=== PATIENT | male | born 1985 ===

== ENCOUNTER 2017-02-12 11:46 | Emergency (ER) | payer OTHER ==
[2017-02-12 11:58] VITALS: RESP 17; TEMP 98
--- NOTE | 2017-02-12 12:30 | ED PDOC ---
Arrival/HPI - General Historian: Patient - History of Present Illness Time/Duration: < week Symptom Onset: Sudden Symptom Course: Intermittent Quality: Stabbing <Iain Tabor - Last Filed: 02/12/17 13:35> <Db Covarrubias DO - Last Filed: 02/12/17 22:08> - General Chief Complaint: Chest Pain Time Seen by Provider: 02/12/17 11:50 - History of Present Illness Narrative History of Present Illness (Text): 02/12/17 12:16 This is a 31 year old male with PMHx A-fib s/p ablation who comes in for evaluation of chest pain. The pain actually begins on the top of his head and radiates down the neck to the center of the sternum. From there, it also radiates straight through to the back. Pain is intermittent and described as a sharp, stabbing sensation. Patient has been experiencing this for 3 days but this morning has started experiencing palpitations prompting him to seek medical attention. Patient also feels lightheaded at times. Patient denies changes in vision, dyspnea, and other acute complaints. PMHx: A-fib diagnosed September 2015 PSHx: Ablation May 2016 at [facility] Allergies: NKDA Social: Former smoker smoking 1 or 2 cigarettes daily for 2 years. Quit in 2016. Denies alcohol, drug use. Family Hx: HTN and CAD on father's side of family. DM on mother's side. Medications: Formerly on Atenolol but stopped 3 months ago by his boiling house hand who stated he did not need it anymore. PMD: Dr. Luong in [place] Cardiologists: Dr. Perez and Dr. Keller in [place] (Iain Tabor) Past Medical History - Provider Review Nursing Documentation Reviewed: Yes - Infectious Disease Hx of Infectious Diseases: None - Cardiac Hx Atrial Fibrillation: Yes - Psychiatric Hx Substance Use: No - Anesthesia Hx Anesthesia: No <Iain Tabor - Last Filed: 02/12/17 13:35> Family/Social History - Physician Review Nursing Documentation Reviewed: Yes Family/Social History: Diabetes, Hypertension Smoking Status: Former Smoker Hx Alcohol Use: No Hx Substance Use: No <Iain Tabor - Last Filed: 02/12/17 13:35> Allergies/Home Meds <Iain Tabor - Last Filed: 02/12/17 13:35> <Db Covarrubias DO - Last Filed: 02/12/17 22:08> Allergies/Adverse Reactions: Allergies No Known Allergies Allergy (Verified 02/12/17 12:07) Home Medications: Home Meds Medication Instructions Recorded Confirmed No Known Home Med 02/12/17 02/12/17 Review of Systems - Review of Systems Constitutional: Normal Eyes: Normal ENT: Normal Respiratory: Normal. absent: SOB Cardiovascular: Chest Pain, Palpitations Gastrointestinal: Abdominal Pain (intermittent when eating or drinking). absent : Constipation, Diarrhea, Nausea, Vomiting Genitourinary Male: Normal Musculoskeletal: Neck Pain Skin: Normal Neurological: Normal, Other (lightheaded) Endocrine: Normal Hemo/Lymphatic: Normal Psychiatric: Normal <LeanderIani Hayde - Last Filed: 02/12/17 13:35> Physical Exam Vital Signs Reviewed: Yes Temperature: Afebrile Blood Pressure: Normal Pulse: Regular Respiratory Rate: Normal Appearance: Positive for: Well-Appearing, Comfortable Pain Distress: None Mental Status: Positive for: Alert and Oriented X 3 - Systems Exam Head: Present: Atraumatic, Normocephalic Pupils: Present: PERRL Extroacular Muscles: Present: EOMI Conjunctiva: Present: Normal Mouth: Present: Moist Mucous Membranes Neck: Present: Normal Range of Motion Respiratory/Chest: Present: Clear to Auscultation, Good Air Exchange. No: Accessory Muscle Use Cardiovascular: Present: Regular Rate and Rhythm, Normal S1, S2 Abdomen: Present: Tenderness (right upper quadrant), Normal Bowel Sounds. No: Distention Upper Extremity: Present: Normal Inspection, NORMAL PULSES. No: Edema Lower Extremity: Present: Normal Inspection, NORMAL PULSES. No: Edema, CALF TENDERNESS Neurological: Present: GCS=15, CN II-XII Intact Skin: Present: Warm, Dry, Normal Color. No: Rashes Psychiatric: Present: Alert, Oriented x 3 <LeanderIain Lock - Last Filed: 02/12/17 13:35> Medical Decision Making <LeanderIain Lock - Last Filed: 02/12/17 13:35> <Db Covarrubias DO - Last Filed: 02/12/17 22:08> ED Course and Treatment: 02/12/17 12:38 EKG, Portable CXR, Cardiac ISO, TSH, T3, T4, Mag EKG showed NSR with rate 84, Right Locust Deviation, and Q waves noted in V1, V2 Portable CXR showed no acute infiltrates, apparent pneumothorax, or other acute pathology. Labwork unremarkable. Patient discharged with instructions to follow up with his PMD Dr. Luong whose phone number was provided. (Iain Tabor) 02/12/17 13:33 Patient Seen With Resident: In agreement with resident note and more details are present in their notes. Patient was seen and evaluated with resident, came up with plan and treatment together. (Db Covarrubias DO) - Lab Interpretations Lab Results: 02/12/17 12:00 02/12/17 12:00 Lab Results 02/12/17 12:00: Free T4 0.67 L, Total T3 1.18, TSH 3rd Generation 1.67 02/12/17 12:00: Sodium 140, Potassium 4.1, Chloride 103, Carbon Dioxide 29, Anion Gap 12, BUN 13, Creatinine 0.9, Est GFR ( Amer) > 60, Est GFR (Non- Af Amer) > 60, Random Glucose 86, Calcium 9.3, Magnesium 2.0, Total Bilirubin 0.8, AST 22, ALT 43, Alkaline Phosphatase 53, Lactate Dehydrogenase 432, Total Creatine Kinase 146, Troponin I < 0.01, Total Protein 7.6, Albumin 4.5, Globulin 3.1, Albumin/Globulin Ratio 1.5 02/12/17 12:00: WBC 4.1 L, RBC 5.47, Hgb 16.7, Hct 45.7, MCV 83.5, MCH 30.5, MCHC 36.5, RDW 11.8, Plt Count 197, MPV 9.8, Gran % 52.0, Lymph % (Auto) 39.4 H , [place] % (Auto) 7.1 H, Eos % (Auto) 1.0 L, Baso % (Auto) 0.5, Gran # 2.13, Lymph # 1.6, [place] # 0.3, Eos # 0.0, Baso # 0.02 - RAD Interpretation Radiology Orders: 02/12/17 12:11 CHEST PORTABLE [RAD] Stat - PA / HANDY WORKER / Resident Statement YARI has reviewed & agrees with the documentation as recorded. <Iain Tabor - Last Filed: 02/12/17 13:35> - PA / HANDY WORKER / Resident Statement YARI has reviewed & agrees with the documentation as recorded. / has examined the patient and agrees with the treatment plan. <Db Covarrubias DO - Last Filed: 02/12/17 22:08> Disposition/Present on Arrival - Present on Arrival Any Indicators Present on Arrival: No History of DVT/PE: No History of Uncontrolled Diabetes: No Urinary Catheter: No History of Decub. Ulcer: No History Surgical Site Infection Following: None - Disposition Have Diagnosis and Disposition been Completed?: Yes Disposition Time: 13:00 Patient Plan: Discharge <Iain Tabor - Last Filed: 02/12/17 13:35> <Db Covarrubias DO - Last Filed: 02/12/17 22:08> - Disposition Diagnosis: Chest pain Disposition: HOME/ ROUTINE Condition: STABLE Discharge Instructions (ExitCare): Chest Pain (ED) Additional Instructions: Your EKG and labwork came back normal. You are not actively in Atrial Fibrillation. Please follow up with Dr. Luong your primary care doctor within 1 week of discharge. His phone number is . Please follow up with your boiling house hand for your history of atrial fibrillation. Please follow up with your neurologist for the headaches. If you experience any worsening symptoms, please return to the emergency room. Forms: [employer] (Korean)
[2017-02-12 12:42] LABS: ALB/GLOB RATIO 1.5 (1.1-1.8); ALKALINE PHOSPHATASE 53 U/L (38-126); ALT/SGPT 43 U/L (7-56); AST/SGOT 22 U/L (17-59); BILIRUBIN,TOTAL 0.8 mg/dL (0.2-1.3); BLOOD UREA NITROGEN 13 mg/dL (7-21); CALCIUM 9.3 mg/dL (8.4-10.5); CARBON DIOXIDE 29 mmol/L (21-33); CHLORIDE 103 mmol/L (98-107); GFR AFRICAN-AMERICAN > 60; GLUCOSE,RANDOM 86 mg/dL (70-110); POTASSIUM 4.1 mmol/L (3.6-5.0); SODIUM 140 mmol/L (132-148); TOTAL PROTEIN 7.6 g/dL (5.8-8.3)
[2017-02-12 12:47] LABS: BASO # 0.02 K/mm3 (0.0-2.0); BASO % 0.5 % (0.0-3.0); GRAN # 2.13 (1.4-6.5); HEMATOCRIT 45.7 % (42.0-52.0); LYMPH # 1.6 (1.2-3.4); LYMPH % 39.4 % (22.0-35.0); MEAN CELL VOLUME 83.5 fl (80.0-105.0); MEAN CORPUSCULAR HEMOGLOBIN 30.5 pg (25.0-35.0); MEAN CORPUSCULAR HGB CONC 36.5 g/dl (31.0-37.0); MEAN PLATELET VOLUME 9.8 fl (7.0-11.0); MONO # 0.3 (0.1-0.6); MONO % 7.1 % (1.0-6.0); RED CELL DISTRIBUTION WIDTH 11.8 % (11.5-14.5); WHITE BLOOD COUNT 4.1 10^3/ul (4.5-11.0)
--- NOTE | 2017-02-12 12:52 | RAD ---
HISTORY: chest pain COMPARISON: None available. TECHNIQUE: Chest, one view. FINDINGS: LUNGS: No focal consolidation. Please note that chest x-ray has limited sensitivity for the detection of pulmonary masses. PLEURA: No significant pleural effusion identified. No definite pneumothorax . CARDIOVASCULAR: The cardiomediastinal silhouette appears within normal limits of size. OSSEOUS STRUCTURES: No acute osseous abnormality identified. VISUALIZED UPPER ABDOMEN: Unremarkable. OTHER FINDINGS: None. IMPRESSION: No focal consolidation, significant pleural effusion, or definite pneumothorax identified.
[2017-02-12 12:58] LABS: TROPONIN I < 0.01 ng/mL
[2017-02-12 12:59] LABS: FREE T4 0.67 ng/dL (0.78-2.19)
[2017-02-12 13:13] LABS: T3 1.18 ng/mL (0.97-1.69); THYROID STIMULATING HORMONE 1.67 mIU/mL (0.46-4.68)
[2017-02-12 13:35] VITALS: BP 119/62; PULSE 79; O2SAT 100
--- NOTE | 2017-02-13 07:30 | CARD ---
APPROVED REPORT EKG Measurement Heart [id number] <Conclusion> Normal sinus rhythm Right superior axis deviation Cannot rule out Anterior infarct, age undetermined Abnormal ECG
== END 2017-02-12 13:35 | disposition home or self-care (01) ==
LOC: ED 11:46
DX: R07.9 Chest pain, unspecified (principal)

== ENCOUNTER 2017-02-28 11:53 | Emergency (ER) | payer OTHER ==
[2017-02-28 12:11] VITALS: RESP 16; TEMP 98.1
--- NOTE | 2017-02-28 12:32 | ED PDOC ---
Arrival/HPI - General Chief Complaint: Palpitations Time Seen by Provider: 02/28/17 12:28 Historian: Patient - History of Present Illness Narrative History of Present Illness (Text): 02/28/17 12:32 This is a 31 year old male with PMHx A-fib s/p ablation who comes in for evaluation of episode of palpitation developed appr. 2 hours [employer]IE[employer] without syncope. As per pt, was having breakfast when suddenly felt fast hear beats, (+ ) dizziness. Episode last approximately 1 hours and resolved with time. AT present time, pt reports ' feel weak with diffuse anterior chest wall pain". Pt admits, was seen here in ED on 02/12/17 due to same complaints, when blood work performed, normal results, patient was discharged with outpt f/u card. Pt admits , was seen by his Qc Manager Dr.Sahar Spearfish, [facility], received heart monitor that he was wearing for last week and removed 2 days ago, so last episode was not registered. Pt sts, was placed on Atenolol before, removed by card few months ago " noted like my palpitation became more frequent". Pt also reports, noted episodes of palpitation triggered by food " recently developed during food intake". Otherwise, pt denies syncope, severe headache, visual changes, focal deficits, SOB, diaphoresis, abd. pain, N/V/D, incontinence, denies weakness, sensory or vascular deficits to B/L UEs and LEs. At the time of evaluation, appears comfortable, not in any apparent distress. PMHx: A-fib diagnosed September 2015 PSHx: Ablation May 2016 at [facility] Allergies: NKDA Social: Former smoker smoking 1 or 2 cigarettes daily for 2 years. Quit in 2016. Denies alcohol, drug use. Family Hx: HTN and CAD on father's side of family. DM on mother's side. Medications: Formerly on Atenolol but stopped 3 months ago by his metals analyst who stated he did not need it anymore. PMD: Dr. Luong in [place] Cardiologists: Dr. Perez and Dr. Keller in [facility] Past Medical History - Provider Review Nursing Documentation Reviewed: Yes - Travel History Have you recently traveled outside [place] w/in the past 3 mons?: No - Infectious Disease Hx of Infectious Diseases: None - Tetanus Immunization Tetanus Immunization: Unknown - Cardiac Hx Cardiac Disorders: Yes Hx Atrial Fibrillation: Yes - Pulmonary Hx Respiratory Disorders: No - Neurological Hx Neurological Disorder: No - HEENT Hx HEENT Disorder: No - Renal Hx Renal Disorder: No - Endocrine/Metabolic Hx Endocrine Disorders: No - Hematological/Oncological Hx Blood Disorders: No - Integumentary Hx Dermatological Disorder: No - Musculoskeletal/Rheumatological Hx Musculoskeletal Disorders: No - Gastrointestinal Hx Gastrointestinal Disorders: No - Genitourinary/Gynecological Hx Genitourinary Disorders: No - Psychiatric Hx Psychophysiologic Disorder: No Hx Substance Use: No - Anesthesia Hx Anesthesia: No Family/Social History - Physician Review Nursing Documentation Reviewed: Yes Family/Social History: No Known Family HX Smoking Status: Former Smoker Hx Alcohol Use: No Hx Substance Use: No Allergies/Home Meds Allergies/Adverse Reactions: Allergies No Known Allergies Allergy (Verified 02/28/17 12:02) Home Medications: Home Meds Medication Instructions Recorded Confirmed No Known Home Med 02/12/17 02/28/17 Review of Systems - Review of Systems Constitutional: Normal Eyes: Normal ENT: Normal Respiratory: Normal Cardiovascular: Palpitations Gastrointestinal: Normal Genitourinary Male: Normal Musculoskeletal: Normal Skin: Normal Neurological: Normal Endocrine: Normal Hemo/Lymphatic: Normal Psychiatric: Normal Physical Exam Vital Signs Temp Pulse Resp BP Pulse Ox 02/28/17 14:49 71 16 119/79 99 02/28/17 12:11 98.1 F 98 H 16 137/76 100 Temperature: Afebrile Blood Pressure: Normal Pulse: Regular Respiratory Rate: Normal Appearance: Positive for: Well-Appearing, Non-Toxic, Comfortable Pain Distress: None Mental Status: Positive for: Alert and Oriented X 3 - Systems Exam Head: Present: Atraumatic, Normocephalic Pupils: Present: PERRL Extroacular Muscles: Present: EOMI Conjunctiva: Present: Normal Mouth: Present: Moist Mucous Membranes Neck: Present: Trachea Midline. No: JVD, Bruit Respiratory/Chest: Present: Clear to Auscultation, Good Air Exchange. No: Respiratory Distress, Accessory Muscle Use Cardiovascular: Present: Regular Rate and Rhythm, Normal S1, S2. No: Murmurs Abdomen: Present: Normal Bowel Sounds. No: Tenderness, Distention, Peritoneal Signs Back: Present: Normal Inspection Upper Extremity: Present: Normal ROM. No: Cyanosis, Edema, Deformity Lower Extremity: Present: NORMAL PULSES, Normal ROM. No: Edema, CALF TENDERNESS , Deformity Neurological: Present: GCS=15, Speech Normal Skin: Present: Warm, Dry, Normal Color. No: Rashes Psychiatric: Present: Alert, Oriented x 3, Normal Insight Medical Decision Making ED Course and Treatment: 02/28/17 At 12:56, case discussed with pt's metals analyst [phone] and case discussed. As per , since episode of palpitation was without syncope, discharge with outpt f/u with him tomorrow at 2:30 PM recommend at this time. Pt was OBS in ED for 2 hours and remained stable on card. monitor, no episode of palpitation register. Case discussed and diagnostics, imaging review with ED attending, Pt was evaluated by . Discharge with outpt f/u agrees as per discussion with pt's metals analyst . Pt is afebrile, hemodynamicaly stable. Non-toxic. PUlseOx 99% RA Neck: Supple, (-) JVD, (-) carotid bruits Lungs: CTA B/L, BS equal B/L CVS: (+)S1S2, reg. Abd: benign. Neurologicaly intact. Results review and discussed with pt, no acute abnormalities noted compare to previous visit. Pt advised to F/u with his card. as scheduled for tomorrow, agrees with plan. Pt is stable for discharge now. - Lab Interpretations Lab Results: 02/28/17 13:35 02/28/17 13:35 Lab Results 02/28/17 13:35: Sodium 143, Potassium 4.3, Chloride 101, Carbon Dioxide 32, Anion Gap 14, BUN 14, Creatinine 0.9, Est GFR ( Amer) > 60, Est GFR (Non- Af Amer) > 60, Random Glucose 73, Calcium 9.7, Magnesium 2.1, Total Bilirubin 0.8, AST 25, ALT 45, Alkaline Phosphatase 56, Lactate Dehydrogenase 444, Total Creatine Kinase 138, Troponin I < 0.01, Total Protein 8.1, Albumin 4.8, Globulin 3.3, Albumin/Globulin Ratio 1.5 02/28/17 13:35: Urine Color Yellow, Urine Appearance Clear, Urine pH 7.5, Ur Specific [place] 1.015, Urine Protein Negative, Urine Glucose (UA) Negative, Urine Ketones Negative, Urine Blood Negative, Urine Nitrate Negative, Urine Bilirubin Negative, Urine Urobilinogen 0.2, Ur Leukocyte Esterase Negative 02/28/17 13:35: PT 11.1, INR 1.03, APTT 26.8, D-Dimer, Quantitative 0.19 02/28/17 13:35: WBC 5.4 D, RBC 5.50, Hgb 17.0, Hct 46.0, MCV 83.6, MCH 30.9, MCHC 37.0, RDW 11.9, Plt Count 200, MPV 9.6, Gran % 65.9, Lymph % (Auto) 24.9, [place] % (Auto) 8.1 H, Eos % (Auto) 0.7 L, Baso % (Auto) 0.4, Gran # 3.57, Lymph # 1.4, [place] # 0.4, Eos # 0.0, Baso # 0.02 Interpretation: No clinic. lab abnormalty - EKG Interpretation EKG Interpretation (Text): 02/28/17 12:03 SR@96/MIN, RAD, NO ACUTE ST-T CHANGES. COMPARE TO ONE FROM PREVIOUS VISIT- APPEARS SIMILAR. Interpreted by ED Physician: Yes Comparison: Similar to previous EKG - Medication Orders Current Medication Orders: Discontinued Medications Sodium Chloride (Sodium Chloride 0.9%) 1,000 mls @ 250 mls/hr IV .Q4H STA Stop: 02/28/17 16:57 Last Admin: 02/28/17 13:31 Dose: 250 mls/hr eMAR Start Stop Document 02/28/17 13:31 HI (Rec: 02/28/17 13:31 VA [id number]) Intravenous Solution Start Date 02/28/17 Start Time 13:31 Disposition/Present on Arrival - Present on Arrival Any Indicators Present on Arrival: No History of DVT/PE: No History of Uncontrolled Diabetes: No Urinary Catheter: No History of Decub. Ulcer: No History Surgical Site Infection Following: None - Disposition Have Diagnosis and Disposition been Completed?: Yes Diagnosis: Palpitation Disposition: HOME/ ROUTINE Disposition Time: 14:23 Patient Plan: Discharge Condition: STABLE Discharge Instructions (ExitCare): Palpitations (ED) Additional Instructions: FOLLOW UP WITH TERRENCE OSBORNE, [facility] TOMORROW 03/01/17 AT 2:30PM FOR RE- EVALUATION WITHOUT FAIL. RETURN TO ED IF ANY WORSENING OR NEW CHANGES. Referrals: [employer] [facility], [Primary Care Provider] - Follow up with primary Forms: [employer] (Irish)
[2017-02-28] MEDS ORDERED: Sodium Chloride 0.9% 1,000 ML IV STA (12:58)
[2017-02-28 13:46] LABS: BASO # 0.02 K/mm3 (0.0-2.0); BASO % 0.4 % (0.0-3.0); EOS % 0.7 % (1.5-5.0); GRAN # 3.57 (1.4-6.5); GRAN % 65.9 % (50.0-68.0); LYMPH # 1.4 (1.2-3.4); LYMPH % 24.9 % (22.0-35.0); MEAN CELL VOLUME 83.6 fl (80.0-105.0); MEAN CORPUSCULAR HEMOGLOBIN 30.9 pg (25.0-35.0); MEAN PLATELET VOLUME 9.6 fl (7.0-11.0); MONO # 0.4 (0.1-0.6); MONO % 8.1 % (1.0-6.0); RED CELL DISTRIBUTION WIDTH 11.9 % (11.5-14.5); WHITE BLOOD COUNT 5.4 10^3/ul (4.5-11.0)
[2017-02-28 13:51] LABS: INR 1.03 (0.93-1.08); PARTIAL THROMBOPLASTIN TIME 26.8 Seconds (23.7-30.8)
[2017-02-28 13:54] LABS: PH,URINE 7.5 (4.7-8.0); URINE BILIRUBIN NEGATIVE (NEGATIVE); URINE BLOOD NEGATIVE (NEGATIVE); URINE GLUCOSE (UA) NEGATIVE (NEGATIVE); URINE KETONE NEGATIVE (NEGATIVE); URINE LEUKOCYTE ESTERASE NEGATIVE Leu/uL (NEGATIVE); URINE PROTEIN NEGATIVE mg/dL (<30 mg/dL); URINE UROBILINOGEN 0.2 E.U./dL (<1 E.U./dL)
[2017-02-28 13:56] LABS: ALB/GLOB RATIO 1.5 (1.1-1.8); ALKALINE PHOSPHATASE 56 U/L (38-126); ALT/SGPT 45 U/L (7-56); AST/SGOT 25 U/L (17-59); BILIRUBIN,TOTAL 0.8 mg/dL (0.2-1.3); BLOOD UREA NITROGEN 14 mg/dL (7-21); CALCIUM 9.7 mg/dL (8.4-10.5); CARBON DIOXIDE 32 mmol/L (21-33); CHLORIDE 101 mmol/L (98-107); GFR AFRICAN-AMERICAN > 60; GLUCOSE,RANDOM 73 mg/dL (70-110); MAGNESIUM 2.1 mg/dL (1.7-2.2); POTASSIUM 4.3 mmol/L (3.6-5.0); SODIUM 143 mmol/L (132-148); TOTAL PROTEIN 8.1 g/dL (5.8-8.3)
[2017-02-28 14:04] LABS: URINE APPEARANCE CLEAR (CLEAR); URINE COLOR YELLOW (YELLOW)
[2017-02-28 14:07] LABS: TROPONIN I < 0.01 ng/mL
[2017-02-28 14:19] LABS: D DIMER 0.19 mg/L FEU (0-0.50)
[2017-02-28 14:51] VITALS: BP 119/79; PULSE 71; O2SAT 99
--- NOTE | 2017-02-28 22:44 | CARD ---
APPROVED REPORT EKG Measurement Heart [id number] 156P55 [id number] <Conclusion> Normal sinus rhythm Right axis deviation Abnormal ECG
== END 2017-02-28 14:51 | disposition home or self-care (01) ==
LOC: ED 11:53
DX: R00.2 Palpitations (principal); Z87.891 Personal history of nicotine dependence; I10 Essential (primary) hypertension; E11.9 Type 2 diabetes mellitus without complications; I25.10 Atherosclerotic heart disease of native coronary artery without angina pectoris; I48.91 Unspecified atrial fibrillation
CPT/HCPCS: 80053; 81003; 82550; 83615; 83735; 84484; 85025; 85378; 85610; 85730; 93005; 99284; J7040

== ENCOUNTER 2017-06-06 10:03 | Emergency (ER) | payer OTHER ==
[2017-06-06 10:15] VITALS: BMI 31.4
[2017-06-06 10:16] VITALS: BP 126/63; PULSE 89; RESP 18; TEMP 99.4; O2SAT 96
[2017-06-06] MEDS ORDERED: Amoxicillin-Clav 875-125 mg Tab PO STA (10:35)
--- NOTE | 2017-06-06 10:38 | ED PDOC ---
Arrival/HPI - General Chief Complaint: Eye Problem Time Seen by Provider: 06/06/17 10:34 Historian: Patient - History of Present Illness Narrative History of Present Illness (Text): 06/06/17 10:35 32 y/o male, no pmh, nkda, c/o rt. upper eyelid swelling and redness. Pt. stated that he had a little lump on the rt. upper eyelid which been having pain , been rubbing the upper eyelid, noted to have redness, no change in vision, no painful movement of the eye, no dizziness, no painful movement of the eye, no headache or neck pain, no other medical or psychological complaints. Past Medical History - Provider Review Nursing Documentation Reviewed: Yes - Infectious Disease Hx of Infectious Diseases: None - Tetanus Immunization Tetanus Immunization: Unknown - Cardiac Hx Cardiac Disorders: Yes Hx Atrial Fibrillation: Yes - Pulmonary Hx Respiratory Disorders: No - Neurological Hx Neurological Disorder: No - HEENT Hx HEENT Disorder: No - Renal Hx Renal Disorder: No - Endocrine/Metabolic Hx Endocrine Disorders: No - Hematological/Oncological Hx Blood Disorders: No - Integumentary Hx Dermatological Disorder: No - Musculoskeletal/Rheumatological Hx Musculoskeletal Disorders: No - Gastrointestinal Hx Gastrointestinal Disorders: No - Genitourinary/Gynecological Hx Genitourinary Disorders: No - Psychiatric Hx Psychophysiologic Disorder: No Hx Substance Use: No - Anesthesia Hx Anesthesia: No Family/Social History - Physician Review Nursing Documentation Reviewed: Yes Family/Social History: Unknown Family HX Smoking Status: Former Smoker Hx Alcohol Use: No Hx Substance Use: No Allergies/Home Meds Allergies/Adverse Reactions: Allergies No Known Allergies Allergy (Verified 02/28/17 12:02) Home Medications: Home Meds Medication Instructions Recorded Confirmed Atenolol [Tenormin] 25 mg PO DAILY 06/06/17 06/06/17 Review of Systems - Review of Systems Constitutional: absent: Fatigue, Fevers Eyes: Other (rt. upper eyelid swelling). absent: Vision Changes ENT: absent: Hearing Changes Respiratory: absent: SOB, Cough Cardiovascular: absent: Chest Pain Gastrointestinal: absent: Abdominal Pain, Nausea, Vomiting Skin: Rash, Cellulitis. absent: Pruritis, Skin Lesions, Ulcer Neurological: absent: Headache, Dizziness Psychiatric: absent: Anxiety, Depression Physical Exam Vital Signs Reviewed: Yes Vital Signs Temp Pulse Resp BP Pulse Ox 06/06/17 10:03 99.4 F 89 18 126/63 96 Temperature: Afebrile Blood Pressure: Normal Pulse: Regular Respiratory Rate: Normal Appearance: Positive for: Well-Appearing, Non-Toxic, Comfortable Pain Distress: None Mental Status: Positive for: Alert and Oriented X 3 - Systems Exam Head: Present: Atraumatic, Normocephalic Pupils: Present: PERRL, Other (Eyes: Rt. eye without correction 20/25 vs. Lt. eye without correction 20/25, bilateral vision 20/25, no hypehema or conjunctivitis, rt. upper eyelid noted to have stye noted on the medial aspect with mild redness and swelling noted on the upper eyelid, no ptosis, full range of extraoucular movement without limitation or entractment, no signs of orbital cellulitis) Extroacular Muscles: Present: EOMI Conjunctiva: Present: Normal Ears: Present: NORMAL TM, Normal Canal. No: Erythema Mouth: Present: Moist Mucous Membranes Pharnyx: No: ERYTHEMA, EXUDATE, TONSILS ENLARGED, Uvular Deviation, Muffled/ Hoarse Voice, Strider, Soft Palate/Uvular Edema Nose (External): Present: Atraumatic. No: Abrasion, Contusion, Laceration Nose (Internal): Present: Normal Inspection, No Active Bleeding. No: Rhinorrhea , Septal Hematoma, Epistaxis Neck: Present: Normal Range of Motion, Trachea Midline. No: Meningeal Signs, MIDLINE TENDERNESS, Paraspinal Tenderness, Lymphadenopathy Respiratory/Chest: Present: Clear to Auscultation, Good Air Exchange. No: Respiratory Distress, Accessory Muscle Use, Wheezes, Decreased Breath Sounds, Rhonchi Cardiovascular: Present: Regular Rate and Rhythm, Normal S1, S2. No: Murmurs Abdomen: Present: Normal Bowel Sounds. No: Tenderness, Distention, Peritoneal Signs Back: Present: Normal Inspection Upper Extremity: Present: Normal Inspection. No: Cyanosis, Edema Lower Extremity: Present: Normal Inspection. No: Edema Neurological: Present: GCS=15, CN II-XII Intact, Speech Normal Skin: Present: Warm, Dry, Normal Color. No: Rashes Psychiatric: Present: Alert, Oriented x 3, Normal Insight, Normal Concentration Medical Decision Making ED Course and Treatment: 06/06/17 10:40 -Discharge home with augmentin, motrin, erythromycin opthalmic oinment, cold compress, follow up with your own pmd and opthalmologist within 2 days, return to the ER for any new or worsening signs or symptoms. - PA / [employer] AND [employer]ORDER OFFICER / Resident Statement MD/DO has reviewed & agrees with the documentation as recorded. Disposition/Present on Arrival - Present on Arrival Any Indicators Present on Arrival: No History of DVT/PE: No History of Uncontrolled Diabetes: No Urinary Catheter: No History of Decub. Ulcer: No History Surgical Site Infection Following: None - Disposition Have Diagnosis and Disposition been Completed?: Yes Diagnosis: Stye Disposition: HOME/ ROUTINE Disposition Time: 10:41 Patient Plan: Discharge Condition: GOOD Additional Instructions: -Discharge home with augmentin, motrin, erythromycin opthalmic oinment, cold compress, follow up with your own pmd and opthalmologist within 2 days, return to the ER for any new or worsening signs or symptoms. Prescriptions: Amoxicillin/Clavulanate [Augmentin 875 MG-125 MG] 1 tab PO BID #20 tab Erythromycin 0.5% [Ilytocin] 0.5 in OD Q4 #1 tube Ibuprofen [Motrin] 600 mg PO QID PRN #30 tab PRN Reason: Other Referrals: Ej Childress [Staff Provider] - Follow up with primary Forms: WORK NOTE
== END 2017-06-06 11:25 | disposition home or self-care (01) ==
LOC: ED 10:03
DX: H00.021 Hordeolum internum right upper eyelid (principal)

== ENCOUNTER 2017-07-13 15:36 | Emergency (ER) | payer OTHER ==
[2017-07-13 15:36] VITALS: BMI 31.4
[2017-07-13 15:43] VITALS: O2SAT 98
--- NOTE | 2017-07-13 16:51 | ED PDOC ---
Arrival/HPI - General Chief Complaint: Chest Pain Time Seen by Provider: 07/13/17 15:51 Historian: Patient - History of Present Illness Narrative History of Present Illness (Text): 07/13/17 16:47 A 32 year old male, whose past medical history include atrial fibrillation s/p ablation on Atenolol, presents to the emergency department complaining of worsening palpitations over the past 3 days. Patient notes associated intermittent shortness of breath with chest pain. Patient notes scheduled follow up with his cyber incident responder in 5 days. Patient denies any fever, chills, nausea, vomiting, abdominal pain or any other complaints. Residential Mortgage Underwriter: Non-[facility] provider Time/Duration: Other (3 days) Symptom Course: Worsening Context: Home Past Medical History - Provider Review Nursing Documentation Reviewed: Yes - Infectious Disease Hx of Infectious Diseases: None - Tetanus Immunization Tetanus Immunization: Unknown - Cardiac Hx Cardiac Disorders: Yes Hx Atrial Fibrillation: Yes - Pulmonary Hx Respiratory Disorders: No - Neurological Hx Neurological Disorder: No - HEENT Hx HEENT Disorder: No - Renal Hx Renal Disorder: No - Endocrine/Metabolic Hx Endocrine Disorders: No - Hematological/Oncological Hx Blood Disorders: No - Integumentary Hx Dermatological Disorder: No - Musculoskeletal/Rheumatological Hx Musculoskeletal Disorders: No - Gastrointestinal Hx Gastrointestinal Disorders: No - Genitourinary/Gynecological Hx Genitourinary Disorders: No - Psychiatric Hx Psychophysiologic Disorder: No Hx Substance Use: No - Anesthesia Hx Anesthesia: Yes Hx Anesthesia Reactions: No Hx Malignant Hyperthermia: No Family/Social History - Physician Review Nursing Documentation Reviewed: Yes Family/Social History: No Known Family HX Smoking Status: Former Smoker Hx Alcohol Use: No Hx Substance Use: No Allergies/Home Meds Allergies/Adverse Reactions: Allergies No Known Allergies Allergy (Verified 02/28/17 12:02) Home Medications: Home Meds Medication Instructions Recorded Confirmed Atenolol [Tenormin] 25 mg PO DAILY 06/06/17 06/06/17 Review of Systems - Physician Review All systems were reviewed & negative as marked: Yes - Review of Systems Constitutional: absent: Weight Change, Fevers, Night Sweats Eyes: absent: Vision Changes Respiratory: SOB. absent: Cough, Sputum, Wheezing Cardiovascular: Chest Pain, Palpitations. absent: Edema, Calf Pain, Orthopnea Gastrointestinal: absent: Abdominal Pain, Constipation, Diarrhea, Nausea, Vomiting Genitourinary Male: absent: Dysuria Skin: absent: Rash Neurological: absent: Headache, Dizziness, Focal Weakness, Gait Changes, Speech Changes Physical Exam Vital Signs Reviewed: Yes Vital Signs Temp Pulse Pulse Resp BP Pulse Ox 07/13/17 17:45 98 F 74 18 136/50 L 98 07/13/17 15:50 78 07/13/17 15:43 97.6 F 80 22 117/65 98 Temperature: Afebrile Blood Pressure: Normal Pulse: Regular Respiratory Rate: Normal Appearance: Positive for: Well-Appearing, Non-Toxic, Comfortable Pain Distress: None Mental Status: Positive for: Alert and Oriented X 3 - Systems Exam Head: Present: Atraumatic, Normocephalic Pupils: Present: PERRL Extroacular Muscles: Present: EOMI Conjunctiva: Present: Normal Mouth: Present: Moist Mucous Membranes, Other (no thyromegaly) Neck: Present: Normal Range of Motion Respiratory/Chest: Present: Clear to Auscultation, Good Air Exchange. No: Respiratory Distress, Accessory Muscle Use, Tender to Palpation Cardiovascular: Present: Regular Rate and Rhythm, Normal S1, S2. No: Murmurs Abdomen: Present: Normal Bowel Sounds. No: Tenderness, Distention, Peritoneal Signs Back: Present: Normal Inspection Upper Extremity: Present: Normal Inspection. No: Cyanosis, Edema Lower Extremity: Present: Normal Inspection. No: Edema, CALF TENDERNESS Neurological: Present: GCS=15, CN II-XII Intact, Speech Normal Skin: Present: Warm, Dry, Normal Color. No: Rashes Psychiatric: Present: Alert, Oriented x 3, Normal Insight, Normal Concentration Medical Decision Making ED Course and Treatment: 07/13/17 16:47 Impression: A 32 year old male with palpitations. Patient notes intermittent shortness of breath with chest pain. Plan: -- Chest xray -- Labs -- Reassess and disposition Progress Notes: EKG shows NSR at 74 BPM with LAD and ?R conduction delay which appears new. 07/13/17 17:52 Cxray negative. Labs including trop and d-dimer negative. Patient has follow- up on monday. He is aware that ekg shows new ?conduction delay and now LAD. He was given copy and instructed to take to cyber incident responder. He understands that he needs to follow-up with his cyber incident responder and may need new stress test, holter monitor or further invasive testing. He has had symptoms intermittently for 3 days. He has normal vitals and reports understanding of need to follow-up - Lab Interpretations Lab Results: 07/13/17 16:45 07/13/17 16:45 Lab Results 07/13/17 16:45: Sodium 142, Potassium 4.4, Chloride 102, Carbon Dioxide 28, Anion Gap 16, BUN 17, Creatinine 0.9, Est GFR ( Amer) > 60, Est GFR (Non- Af Amer) > 60, Random Glucose 79, Calcium 10.0, Phosphorus 4.6 H, Magnesium 2.1 , Total Bilirubin 0.6, AST 32, ALT 61 H, Alkaline Phosphatase 52, Total Creatine Kinase 276 H, CK-MB (CK-2) 1.3, CK-MB (CK-2) % Cancelled, Troponin I < 0.01, Total Protein 7.7, Albumin 4.4, Globulin 3.3, Albumin/Globulin Ratio 1.3 07/13/17 16:45: PT 12.5, INR 1.09 H, APTT 31.0, D-Dimer, Quantitative < 200 07/13/17 16:45: WBC 5.0, RBC 4.84, Hgb 14.9 D, Hct 41.2 L, MCV 85.1, MCH 30.8, MCHC 36.2, RDW 11.7, Plt Count 198, MPV 9.8, Gran % 43.5 L, Lymph % (Auto) 48.3 H, [place] % (Auto) 6.4 H, Eos % (Auto) 1.2 L, Baso % (Auto) 0.6, Gran # 2.18, Lymph # (Auto) 2.4, [place] # (Auto) 0.3, Eos # (Auto) 0.1, Baso # (Auto) 0.03 - RAD Interpretation Radiology Orders: 07/13/17 16:29 CHEST PORTABLE [RAD] Stat - Scribe Statement The provider has reviewed the documentation as recorded by the Aleciaibphyllis Gill Provider Scribe Attestation: All medical record entries made by the Scribe were at my direction and personally dictated by me. I have reviewed the chart and agree that the record accurately reflects my personal performance of the history, physical exam, medical decision making, and the department course for this patient. I have also personally directed, reviewed, and agree with the discharge instructions and disposition. Disposition/Present on Arrival - Present on Arrival Any Indicators Present on Arrival: No History of DVT/PE: No History of Uncontrolled Diabetes: No Urinary Catheter: No History of Decub. Ulcer: No History Surgical Site Infection Following: None - Disposition Have Diagnosis and Disposition been Completed?: Yes Diagnosis: Chest pain, Nonspecific ST-T wave electrocardiographic changes Disposition: HOME/ ROUTINE Disposition Time: 17:53 Patient Plan: Discharge Condition: GOOD Discharge Instructions (ExitCare): Chest Pain (ED) Additional Instructions: Follow-up with your cyber incident responder on monday. Attempt to make earlier appt if possible. Follow-up with your PMD within 2 days. Return to ED if condition worsens. Referrals: PCP,NO [Primary Care Provider] - Follow up with primary Forms: [employer] (Faroese)
[2017-07-13 17:02] LABS: BASO # 0.03 K/mm3 (0.0-2.0); BASO % 0.6 % (0.0-3.0); EOS # 0.1 (0.0-0.7); EOS % 1.2 % (1.5-5.0); GRAN # 2.18 (1.4-6.5); GRAN % 43.5 % (50.0-68.0); HEMOGLOBIN 14.9 g/dL (14.0-18.0); LYMPH # 2.4 (1.2-3.4); LYMPH % 48.3 % (22.0-35.0); MEAN CELL VOLUME 85.1 fl (80.0-105.0); MEAN CORPUSCULAR HEMOGLOBIN 30.8 pg (25.0-35.0); MEAN CORPUSCULAR HGB CONC 36.2 g/dl (31.0-37.0); MEAN PLATELET VOLUME 9.8 fl (7.0-11.0); MONO # 0.3 (0.1-0.6); MONO % 6.4 % (1.0-6.0); RBC 4.84 10^6/uL (3.5-6.1); RED CELL DISTRIBUTION WIDTH 11.7 % (11.5-14.5)
[2017-07-13 17:15] LABS: PROTHROMBIN TIME 12.5 SECONDS (9.4-12.5)
[2017-07-13 17:16] LABS: D DIMER < 200 ng/mL (0-243); INR 1.09 (0.93-1.08)
[2017-07-13 17:24] LABS: TROPONIN I < 0.01 ng/mL
[2017-07-13 17:31] LABS: ALB/GLOB RATIO 1.3 (1.1-1.8); ALBUMIN 4.4 g/dL (3.0-4.8); ALT/SGPT 61 U/L (7-56); AST/SGOT 32 U/L (17-59); BLOOD UREA NITROGEN 17 mg/dL (7-21); CK-MB 1.3 ng/mL (0.0-3.6); GFR AFRICAN-AMERICAN > 60; GFR NON-AFRICAN AMERICAN > 60; MAGNESIUM 2.1 mg/dL (1.7-2.2)
[2017-07-13 17:45] VITALS: BP 136/50; PULSE 74; RESP 18; TEMP 98
--- NOTE | 2017-07-13 18:45 | RAD ---
HISTORY: chest pain COMPARISON: Chest x-ray performed 02/12/17 TECHNIQUE: Chest, one view. FINDINGS: Examination limited by habitus. LUNGS: No focal consolidation. Please note that chest x-ray has limited sensitivity for the detection of pulmonary masses. PLEURA: No significant pleural effusion identified. No definite pneumothorax . CARDIOVASCULAR: The cardiomediastinal silhouette appears within normal limits of size. OSSEOUS STRUCTURES: No acute osseous abnormality identified. VISUALIZED UPPER ABDOMEN: Unremarkable. OTHER FINDINGS: None. IMPRESSION: No focal consolidation, significant pleural effusion, or definite pneumothorax identified.
--- NOTE | 2017-07-17 14:53 | CARD ---
APPROVED REPORT <Conclusion> NSR IRBBB
== END 2017-07-13 18:35 | disposition home or self-care (01) ==
LOC: ED 15:36
DX: R07.9 Chest pain, unspecified (principal); R94.31 Abnormal electrocardiogram [ECG] [EKG]; Z87.891 Personal history of nicotine dependence; I48.91 Unspecified atrial fibrillation

== ENCOUNTER 2017-11-15 16:56 | Emergency (ER) | payer OTHER ==
[2017-11-15 16:56] VITALS: BMI 31.4
[2017-11-15 17:12] VITALS: BP 113/63; PULSE 74; RESP 18; TEMP 98
--- NOTE | 2017-11-15 17:19 | ED PDOC ---
Arrival/HPI - General Chief Complaint: Palpitations Time Seen by Provider: 11/15/17 17:09 Historian: Patient - History of Present Illness Narrative History of Present Illness (Text): 11/15/17 17:16 pt p/w + sudden onset of palpitations this afternoon ~ 4pm, just prior to Emergency department arrival; pt states he walked up to his apt floor and was grabbing something from the fridge when he felt a sudden palpitations; pt states symptoms lasted x 15min, pt states mild dizziness/lightheadedness, no fever/chills/sweats, no cp/sob, no abd pain, no n/v, no numbness/tingling, no urinary/bowel changes, no fall/trauma/sick contact, no travel; pt denied LOC; pt denied other complaints pt is here for further evaluation PCP: Becca Cardio: Dr Reyes pt has had cardiac ablation 2 years ago past medical history: + atrial fib Time/Duration: Prior to Arrival Symptom Onset: Sudden Symptom Course: Improving Context: Home Past Medical History - Provider Review Nursing Documentation Reviewed: Yes - Travel History Have you recently traveled outside [place] w/in the past 3 mons?: No - Past History Past History: No Previous - Infectious Disease Hx of Infectious Diseases: None - Tetanus Immunization Tetanus Immunization: Unknown - Cardiac Hx Cardiac Disorders: Yes Hx Atrial Fibrillation: Yes (h/o ablation) - Pulmonary Hx Respiratory Disorders: No - Neurological Hx Neurological Disorder: No - HEENT Hx HEENT Disorder: No - Renal Hx Renal Disorder: No - Endocrine/Metabolic Hx Endocrine Disorders: No - Hematological/Oncological Hx Blood Disorders: No - Integumentary Hx Dermatological Disorder: No - Musculoskeletal/Rheumatological Hx Musculoskeletal Disorders: No - Gastrointestinal Hx Gastrointestinal Disorders: No - Genitourinary/Gynecological Hx Genitourinary Disorders: No - Psychiatric Hx Psychophysiologic Disorder: No Hx Substance Use: No - Anesthesia Hx Anesthesia: Yes Hx Anesthesia Reactions: No Hx Malignant Hyperthermia: No Family/Social History - Physician Review Nursing Documentation Reviewed: Yes Family/Social History: No Known Family HX Smoking Status: Former Smoker Hx Alcohol Use: No Hx Substance Use: No Hx Substance Use Treatment: No Allergies/Home Meds Allergies/Adverse Reactions: Allergies No Known Allergies Allergy (Verified 02/28/17 12:02) Home Medications: Home Meds Medication Instructions Recorded Confirmed Atenolol [Tenormin] 25 mg PO DAILY 06/06/17 11/15/17 Review of Systems - Review of Systems Constitutional: Normal Eyes: Normal ENT: Normal Respiratory: Normal. absent: SOB Cardiovascular: Palpitations. absent: Chest Pain Gastrointestinal: Normal. absent: Abdominal Pain, Nausea, Vomiting Genitourinary Male: Normal Musculoskeletal: Normal Skin: Normal Neurological: Normal Endocrine: Normal Hemo/Lymphatic: Normal Psychiatric: Normal Physical Exam - Physical Exam Narrative Physical Exam (Text): 11/15/17 17:18 General: alert/awake, GCS = 15, oriented x 3, resting in bed, uncomfortable, cooperative, interactive; NAD Head: NC/AT EYE: PERRLA, EOMI, sclera anicteric, no nystagmus, no photophobia; visual field intact b/l Facial: WNL Oral: uvula/tongue are midline, no exudate/lesions, no drooling/stridor, no dysphonia; intact dentitions; moist oral mucosa NECK: intact ROM, no midline tenderness, no nuchal rigidity, no meningeal signs ; no step off Chest: CTA b/l, no w/r/r; no tachypenia, no accessory muscle use noted Chest Wall: no focal tenderness, no gross deformities, no crepitus, no lesions/ rashes noted Cardiac: +S1, +S2, no m/r/r, no tachycardia Abdominal: +BS, soft/nd/nt, well nourished patient; no masses/rebound/guarding/ rigidity; no valencia's sign, no mcburney's point tenderness Extremities: intact ROM, strength 5/5 grossly intact in all limbs, neurovasc intact b/l; + ambulatory; reflex +2/2 BACK: no step off, no midline tenderness, NO crepitus, no gross deformities noted; Intact ROM SKIN: cap refill < 1 sec, no ulcerations, no petechiae, no rashes; no gross pallor NEURO: CNII-XII WNL, no facial asymmetries, no slurr speech, oriented x 3 NIH stroke scale ~ 0 Psych: normal insight, normal affect; follows command with ease Vital Signs Reviewed: Yes Vital Signs Temp Pulse Resp BP Pulse Ox 11/15/17 17:11 98.0 F 74 18 113/63 97 Temperature: Afebrile Blood Pressure: Normal Pulse: Regular Respiratory Rate: Normal Appearance: Positive for: Well-Appearing, Non-Toxic, Uncomfortable Pain Distress: None Mental Status: Positive for: Alert and Oriented X 3 - Systems Exam Head: Present: Atraumatic, Normocephalic Medical Decision Making ED Course and Treatment: 11/15/17 17:10 Impression: palpitations i have consider all the differential diagnosis regarding pt's chief medical complaints/clinical findings, including but are not limited to: palpitations A/P: palpitations - labs - xray - supportive care - observe/reevaluation 1800 pt remained comfortable pt is not in any distress pt denied any palpitations 11/15/17 19:30 vital signs remained stable no tachyarrhythmia/palpitations is noted pt is made aware of his medical results pt is encouraged fluids pt is encouraged no heavy lifting; and avoid caffeine pt will f/u as directed pt will be discharged home Re-evaluation Time: 19:35 Reassessment Condition: Improved - Lab Interpretations Lab Results: 11/15/17 17:36 11/15/17 17:36 Lab Results 11/15/17 17:36: TSH 3rd Generation 1.85 11/15/17 17:36: Sodium 145, Potassium 4.2, Chloride 102, Carbon Dioxide 29, Anion Gap 18, BUN 16, Creatinine 0.9, Est GFR ( Amer) > 60, Est GFR (Non- Af Amer) > 60, Random Glucose 102, Calcium 9.0, Magnesium 2.2, Total Bilirubin 0.5, AST 24, ALT 40, Alkaline Phosphatase 51, Lactate Dehydrogenase 420, Total Creatine Kinase 90, Troponin I < 0.01, Total Protein 7.6, Albumin 4.2, Globulin 3.3, Albumin/Globulin Ratio 1.3 11/15/17 17:36: WBC 5.3, RBC 5.02, Hgb 15.7, Hct 42.2, MCV 84.1, MCH 31.3, MCHC 37.2 H, RDW 12.0, Plt Count 207, MPV 9.8, Gran % 54.8, Lymph % (Auto) 37.1 H, [place] % (Auto) 6.6 H, Eos % (Auto) 1.1 L, Baso % (Auto) 0.4, Gran # 2.93, Lymph # (Auto) 2.0, [place] # (Auto) 0.4, Eos # (Auto) 0.1, Baso # (Auto) 0.02 I have reviewed the lab results: Yes Interpretation: All labs normal - RAD Interpretation Narrative RAD Interpretations (Text): 11/15/17 19:04 prelim Chest X-ray shows no active disease. Radiology Orders: 11/15/17 17:17 CHEST TWO VIEWS (PA/LAT) [RAD] Stat Commercial Lender: Radiologist - EKG Interpretation EKG Interpretation (Text): 11/15/17 19:50 NSR at 80 bpm, normal axis, no ectopy, non-specific st-t changes, ABNL EKG; unchanged compare with old ekg 07/2017 Interpreted by ED Physician: Yes Type: 12 lead EKG Comparison: Similar to previous EKG Disposition/Present on Arrival - Present on Arrival Any Indicators Present on Arrival: No History of DVT/PE: No History of Uncontrolled Diabetes: No Urinary Catheter: No History of Decub. Ulcer: No History Surgical Site Infection Following: None - Disposition Have Diagnosis and Disposition been Completed?: Yes Diagnosis: Palpitations Disposition: HOME/ ROUTINE Disposition Time: 19:36 Patient Plan: Discharge Patient Problems: Current Active Problems Problem Status Onset Palpitations Acute Condition: STABLE Discharge Instructions (ExitCare): Palpitations Print Language: TELUGU Additional Instructions: Make sure to see your doctor in 1-2 days DRINK PLENTY OF FLUIDS take your medications as prescribed NO caffiene products NO alcohol NO smoking NO drugs RETURN TO ED IF worse pain, cant breath, persistent vomiting, high fever >101- 102 for hours, altered behavior, slurr speech, facial changes, focal weakness ( arm/leg or both), unable to urinate, heavy/persistent bleeding, passing out, chest pain, or other medical emergencies Referrals: Chico Hudson MD [Staff Provider] - Follow up with primary Ken Reyes MD [Staff Provider] - Follow up with primary Forms: [employer] (Amharic)
[2017-11-15 17:41] LABS: BASO # 0.02 K/mm3 (0.0-2.0); BASO % 0.4 % (0.0-3.0); EOS # 0.1 (0.0-0.7); EOS % 1.1 % (1.5-5.0); GRAN # 2.93 (1.4-6.5); GRAN % 54.8 % (50.0-68.0); HEMOGLOBIN 15.7 g/dL (14.0-18.0); LYMPH % 37.1 % (22.0-35.0); MEAN CELL VOLUME 84.1 fl (80.0-105.0); MEAN CORPUSCULAR HEMOGLOBIN 31.3 pg (25.0-35.0); MEAN CORPUSCULAR HGB CONC 37.2 g/dl (31.0-37.0); MEAN PLATELET VOLUME 9.8 fl (7.0-11.0); MONO # 0.4 (0.1-0.6); MONO % 6.6 % (1.0-6.0); RBC 5.02 10^6/uL (3.5-6.1); WHITE BLOOD COUNT 5.3 10^3/ul (4.5-11.0)
[2017-11-15 17:55] LABS: ALB/GLOB RATIO 1.3 (1.1-1.8); ALBUMIN 4.2 g/dL (3.0-4.8); ALT/SGPT 40 U/L (7-56); AST/SGOT 24 U/L (17-59); BLOOD UREA NITROGEN 16 mg/dL (7-21); GFR AFRICAN-AMERICAN > 60; GFR NON-AFRICAN AMERICAN > 60
[2017-11-15 18:05] LABS: TROPONIN I < 0.01 ng/mL
[2017-11-15 20:05] VITALS: O2SAT 99
--- NOTE | 2017-11-16 08:36 | RAD ---
HISTORY: palpitations COMPARISON: 07/13/2017 TECHNIQUE: Chest PA and lateral FINDINGS: LUNGS: No active pulmonary disease. PLEURA: No significant pleural effusion identified. No pneumothorax apparent. CARDIOVASCULAR: Normal. OSSEOUS STRUCTURES: No significant abnormalities. VISUALIZED UPPER ABDOMEN: Normal. OTHER FINDINGS: None. IMPRESSION: No active disease.
--- NOTE | 2017-11-16 12:29 | CARD ---
APPROVED REPORT EKG Measurement Heart [id number] <Conclusion> Normal sinus rhythm Right axis deviation No change
== END 2017-11-15 20:04 | disposition home or self-care (01) ==
LOC: ED 16:56
DX: R00.2 Palpitations (principal)

== ENCOUNTER 2017-11-24 13:40 | Emergency (ER) | payer OTHER ==
[2017-11-24 13:40] VITALS: BMI 31.4
[2017-11-24 13:52] VITALS: RESP 18; TEMP 98.2
[2017-11-24] MEDS ORDERED: Sodium Chloride 0.9% 1,000 ML IV SCH (14:00)
--- NOTE | 2017-11-24 14:09 | ED PDOC ---
Arrival/HPI - General Chief Complaint: Palpitations Time Seen by Provider: 11/24/17 13:54 Historian: Patient - History of Present Illness Narrative History of Present Illness (Text): 11/24/17 13:59 32 y/o male, pmh including a.fibb/chronic palpitation with ablation done, nkda, c/o palpitation started about 4 hours ago prior to arrival. Pt. stated that he was on the atenolol and advised by the game preserve manager to stop taking it as they are gonna do more cardiology related test, was at the gym this morning around 10am and intense sweating, feeling heart is beating fast and palpitation for couple seconds, no coughing or shortness of breath, no night sweat, no rash, no other medical or psychological complaints. Past Medical History - Provider Review Nursing Documentation Reviewed: Yes - Past History Past History: No Previous - Infectious Disease Hx of Infectious Diseases: None - Tetanus Immunization Tetanus Immunization: Unknown - Cardiac Hx Cardiac Disorders: Yes Hx Atrial Fibrillation: Yes (h/o ablation) - Pulmonary Hx Respiratory Disorders: No - Neurological Hx Neurological Disorder: No - HEENT Hx HEENT Disorder: No - Renal Hx Renal Disorder: No - Endocrine/Metabolic Hx Endocrine Disorders: No - Hematological/Oncological Hx Blood Disorders: No - Integumentary Hx Dermatological Disorder: No - Musculoskeletal/Rheumatological Hx Musculoskeletal Disorders: No - Gastrointestinal Hx Gastrointestinal Disorders: No - Genitourinary/Gynecological Hx Genitourinary Disorders: No - Psychiatric Hx Psychophysiologic Disorder: No Hx Substance Use: No - Anesthesia Hx Anesthesia: Yes Hx Anesthesia Reactions: No Hx Malignant Hyperthermia: No Family/Social History - Physician Review Nursing Documentation Reviewed: Yes Family/Social History: Unknown Family HX Smoking Status: Former Smoker Hx Alcohol Use: No Hx Substance Use: No Hx Substance Use Treatment: No Allergies/Home Meds Allergies/Adverse Reactions: Allergies No Known Allergies Allergy (Verified 11/24/17 13:49) Home Medications: Home Meds Medication Instructions Recorded Confirmed Atenolol [Tenormin] 25 mg PO DAILY 06/06/17 11/24/17 Review of Systems - Review of Systems Constitutional: absent: Fatigue, Fevers Eyes: absent: Vision Changes ENT: absent: Hearing Changes Respiratory: absent: SOB, Cough Cardiovascular: Palpitations. absent: Chest Pain Gastrointestinal: absent: Abdominal Pain, Nausea, Vomiting Musculoskeletal: absent: Arthralgias, Back Pain Skin: absent: Rash, Pruritis Neurological: absent: Headache, Dizziness Psychiatric: absent: Anxiety, Depression, Suicidal Ideation Physical Exam Vital Signs Reviewed: Yes Vital Signs Temp Pulse Pulse Resp BP Pulse Ox 11/24/17 17:14 77 18 114/61 99 11/24/17 15:53 76 18 116/69 99 11/24/17 13:51 98.2 F 108 H 18 114/63 100 11/24/17 13:50 78 Temperature: Afebrile Blood Pressure: Normal Pulse: Tachycardic Respiratory Rate: Normal Appearance: Positive for: Well-Appearing, Non-Toxic, Comfortable Pain Distress: None Mental Status: Positive for: Alert and Oriented X 3 - Systems Exam Head: Present: Atraumatic, Normocephalic Pupils: Present: PERRL Extroacular Muscles: Present: EOMI Conjunctiva: Present: Normal Mouth: Present: Moist Mucous Membranes Neck: Present: Normal Range of Motion Respiratory/Chest: Present: Clear to Auscultation, Good Air Exchange. No: Respiratory Distress, Accessory Muscle Use Cardiovascular: Present: Regular Rate and Rhythm, Normal S1, S2. No: Murmurs Abdomen: No: Tenderness, Distention, Peritoneal Signs Back: Present: Normal Inspection Upper Extremity: Present: Normal Inspection. No: Cyanosis, Edema Lower Extremity: Present: Normal Inspection. No: Edema Neurological: Present: GCS=15, CN II-XII Intact, Speech Normal Skin: Present: Warm, Dry, Normal Color. No: Rashes Psychiatric: Present: Alert, Oriented x 3, Normal Insight, Normal Concentration Medical Decision Making ED Course and Treatment: 11/24/17 14:09 -HR is at 80 now, asymptomatic -labs/ua/uds/thyroid panel -ekg -cxr -IVF -Observe and reassess 11/24/17 15:43 -PERC is negative for PE -Heart score is 2 -EKG: NSR @ 82 BPM, no ST elevation or depression, no T wave inversion, compared with previous ekg. -Chest xray show No active disease. -labs show no acute findings -Cardiac troponin is negative -BNP within normal limit -Thyroid panel is within normal limit -Pt. is asymptomatic at this time. 11/24/17 15:47 -2nd set of troponin ordered for 18:20 and pending for the 2nd set. 11/24/17 16:43 -UDS is negative. 11/24/17 18:30 -2nd set of troponin is negative, observe in the ER for over several hours, asymptomatic, will discharge home. -Discharge home with education on follow up with your own pmd and game preserve manager within 2 days, avoid and skipped all energy drinks/energy drinks/stimulants, return to the ER for any new or worsening signs or symptoms. - Lab Interpretations Lab Results: 11/24/17 14:35 11/24/17 14:35 Lab Results 11/24/17 17:45: Lactate Dehydrogenase 465, Total Creatine Kinase 185, Troponin I < 0.01 11/24/17 16:00: Urine Opiates Screen Negative, Urine Methadone Screen Negative, Ur Barbiturates Screen Negative, Ur Phencyclidine Scrn Negative, Ur Amphetamines Screen Negative, U Benzodiazepines Scrn Negative, U Oth Cocaine Metabols Negative, U Cannabinoids Screen Negative 11/24/17 14:35: Free T4 0.80, TSH 3rd Generation 1.97 11/24/17 14:35: Sodium 143, Potassium 4.1, Chloride 100, Carbon Dioxide 32, Anion Gap 15, BUN 16, Creatinine 0.9, Est GFR ( Amer) > 60, Est GFR (Non- Af Amer) > 60, Random Glucose 61 L, Calcium 9.8, Magnesium 2.4 H, Total Bilirubin 0.6, AST 29, ALT 43, Alkaline Phosphatase 49, Lactate Dehydrogenase 531, Total Creatine Kinase 167, Troponin I < 0.01, NT-Pro-B Natriuret Pep 19.5, Total Protein 8.0, Albumin 4.7, Globulin 3.3, Albumin/Globulin Ratio 1.4 11/24/17 14:35: Urine Color Yellow, Urine Appearance Clear, Urine pH 6.0, Ur Specific [place] <= 1.005, Urine Protein Negative, Urine Glucose (UA) Negative, Urine Ketones Negative, Urine Blood Negative, Urine Nitrate Negative, Urine Bilirubin Negative, Urine Urobilinogen 0.2, Ur Leukocyte Esterase Negative 11/24/17 14:35: WBC 8.3 D, RBC 5.25, Hgb 15.9, Hct 43.8, MCV 83.4, MCH 30.3, MCHC 36.3, RDW 11.9, Plt Count 205, MPV 9.8, Gran % 70.2 H, Lymph % (Auto) 24.1 , [place] % (Auto) 4.7, Eos % (Auto) 0.6 L, Baso % (Auto) 0.4, Gran # 5.85, Lymph # (Auto) 2.0, [place] # (Auto) 0.4, Eos # (Auto) 0.1, Baso # (Auto) 0.03 - RAD Interpretation Radiology Orders: 11/24/17 13:58 CHEST PORTABLE [RAD] Stat HISTORY: medical clearance COMPARISON: 11/15/2017 FINDINGS: LUNGS: No active pulmonary disease. PLEURA: No significant pleural effusion identified, no pneumothorax apparent. CARDIOVASCULAR: Normal. OSSEOUS STRUCTURES: No significant abnormalities. VISUALIZED UPPER ABDOMEN: Normal. OTHER FINDINGS: None. IMPRESSION: No active disease. Casket Assembler: Radiologist - EKG Interpretation EKG Interpretation (Text): 11/24/17 14:11 -EKG: NSR @ 82 BPM, no ST elevation or depression, no T wave inversion, compared with previous ekg. Interpreted by ED Physician: Yes Type: 12 lead EKG Comparison: Com.w/previous EKG - Medication Orders Current Medication Orders: Sodium Chloride (Sodium Chloride 0.9%) 1,000 mls @ 100 mls/hr IV .Q10H JR Last Admin: 11/24/17 14:37 Dose: 100 mls/hr eMAR Start Stop Document 11/24/17 14:37 MS (Rec: 11/24/17 14:38 MS [facility] [id number]) Intravenous Solution Start Date 11/24/17 Start Time 14:38 - PA / CONCRETE CRAFTSMAN / Resident Statement MD/DO has reviewed & agrees with the documentation as recorded. Disposition/Present on Arrival - Present on Arrival Any Indicators Present on Arrival: No History of DVT/PE: No History of Uncontrolled Diabetes: No Urinary Catheter: No History of Decub. Ulcer: No History Surgical Site Infection Following: None - Disposition Have Diagnosis and Disposition been Completed?: Yes Diagnosis: Palpitation Disposition: HOME/ ROUTINE Disposition Time: 14:11 Patient Plan: Discharge Patient Problems: Current Active Problems Problem Status Onset Palpitation Acute Condition: IMPROVED Discharge Instructions (ExitCare): Palpitations Additional Instructions: -Discharge home with education on follow up with your own pmd and game preserve manager within 2 days, avoid and skipped all energy drinks/energy drinks/stimulants, return to the ER for any new or worsening signs or symptoms. Referrals: Ken Reyes MD [Staff Provider] - Follow up with primary Forms: WORK NOTE
[2017-11-24 14:46] LABS: URINE BILIRUBIN NEGATIVE (NEGATIVE); URINE BLOOD NEGATIVE (NEGATIVE); URINE GLUCOSE (UA) NEGATIVE (NEGATIVE); URINE LEUKOCYTE ESTERASE NEGATIVE Leu/uL (NEGATIVE); URINE PROTEIN NEGATIVE mg/dL (<30 mg/dL); URINE UROBILINOGEN 0.2 E.U./dL (<1 E.U./dL)
[2017-11-24 14:47] LABS: BASO # 0.03 K/mm3 (0.0-2.0); BASO % 0.4 % (0.0-3.0); EOS # 0.1 (0.0-0.7); EOS % 0.6 % (1.5-5.0); GRAN # 5.85 (1.4-6.5); GRAN % 70.2 % (50.0-68.0); HEMOGLOBIN 15.9 g/dL (14.0-18.0); LYMPH % 24.1 % (22.0-35.0); MEAN CELL VOLUME 83.4 fl (80.0-105.0); MEAN CORPUSCULAR HEMOGLOBIN 30.3 pg (25.0-35.0); MEAN CORPUSCULAR HGB CONC 36.3 g/dl (31.0-37.0); MEAN PLATELET VOLUME 9.8 fl (7.0-11.0); MONO # 0.4 (0.1-0.6); MONO % 4.7 % (1.0-6.0); RBC 5.25 10^6/uL (3.5-6.1); RED CELL DISTRIBUTION WIDTH 11.9 % (11.5-14.5); WHITE BLOOD COUNT 8.3 10^3/ul (4.5-11.0)
--- NOTE | 2017-11-24 14:47 | RAD ---
HISTORY: medical clearance COMPARISON: 11/15/2017 FINDINGS: LUNGS: No active pulmonary disease. PLEURA: No significant pleural effusion identified, no pneumothorax apparent. CARDIOVASCULAR: Normal. OSSEOUS STRUCTURES: No significant abnormalities. VISUALIZED UPPER ABDOMEN: Normal. OTHER FINDINGS: None. IMPRESSION: No active disease.
[2017-11-24 14:48] LABS: URINE APPEARANCE CLEAR (CLEAR); URINE COLOR YELLOW (YELLOW)
[2017-11-24 14:57] LABS: ALB/GLOB RATIO 1.4 (1.1-1.8); ALBUMIN 4.7 g/dL (3.0-4.8); ALT/SGPT 43 U/L (7-56); AST/SGOT 29 U/L (17-59); BLOOD UREA NITROGEN 16 mg/dL (7-21); CALCIUM 9.8 mg/dL (8.4-10.5); GFR AFRICAN-AMERICAN > 60; GFR NON-AFRICAN AMERICAN > 60
[2017-11-24 15:04] LABS: B-TYPE NATRIURETIC PEPTIDE 19.5 pg/mL (0-450); TROPONIN I < 0.01 ng/mL
[2017-11-24 15:09] LABS: FREE T4 0.8 ng/dL (0.78-2.19)
[2017-11-24 15:53] VITALS: O2SAT 99
[2017-11-24 16:41] LABS: BARBITURATES, UR NEGATIVE (NEGATIVE); BENZODIAZEPINES, UR NEGATIVE (NEGATIVE); OPIATES, UR NEGATIVE (NEGATIVE); PHENCYCLIDINE, UR NEGATIVE (NEGATIVE)
[2017-11-24 17:14] VITALS: BP 114/61; PULSE 77
[2017-11-24 18:21] LABS: TROPONIN I < 0.01 ng/mL
--- NOTE | 2017-11-24 21:19 | CARD ---
APPROVED REPORT EKG Measurement Heart [id number] MS [id number] <Conclusion> Normal sinus rhythm Right superior axis deviation Abnormal ECG
== END 2017-11-24 18:46 | disposition home or self-care (01) ==
LOC: ED 13:40
DX: R00.2 Palpitations (principal); I48.91 Unspecified atrial fibrillation
CPT/HCPCS: 71045; 80053; 80324; 80345; 80346; 80349; 80353; 80358; 80361; 81003; 82550; 83615; 83735; 83880; 83992; 84439; 84443; 84484; 85025; 93005; 99284; J7030

== ENCOUNTER 2018-02-19 19:44 | Observation (INO) | payer MEDICAID, OTHER ==
[2018-02-19 20:00] VITALS: BMI 31.0
--- NOTE | 2018-02-19 20:57 | ED PDOC ---
Arrival/HPI - General Chief Complaint: Chest Pain Time Seen by Provider: 02/19/18 19:47 Historian: Patient - History of Present Illness Narrative History of Present Illness (Text): 02/19/18 19:55 A 32 year old male, whose past medical history includes Atrial Fibrillation with s/p cardiac issues, presents to the emergency department complaining of chest discomfort starting today with associated palpitations. Patient denies fever, chills, shortness of breath, abdominal pain, back pain, or any other complaints at this time. PMD: Dr. Hudson Past Medical History - Provider Review Nursing Documentation Reviewed: Yes - Past History Past History: No Previous - Infectious Disease Hx of Infectious Diseases: None - Tetanus Immunization Tetanus Immunization: Unknown - Cardiac Hx Atrial Fibrillation: Yes - Pulmonary Hx Respiratory Disorders: No - Neurological Hx Neurological Disorder: No - HEENT Hx HEENT Disorder: No - Renal Hx Renal Disorder: No - Endocrine/Metabolic Hx Endocrine Disorders: No - Hematological/Oncological Hx Blood Disorders: No - Integumentary Hx Dermatological Disorder: No - Musculoskeletal/Rheumatological Hx Musculoskeletal Disorders: No - Gastrointestinal Hx Gastrointestinal Disorders: No - Genitourinary/Gynecological Hx Genitourinary Disorders: No - Psychiatric Hx Psychophysiologic Disorder: No Hx Substance Use: No - Anesthesia Hx Anesthesia: Yes Hx Anesthesia Reactions: No Hx Malignant Hyperthermia: No Family/Social History - Physician Review Nursing Documentation Reviewed: Yes Family/Social History: No Known Family HX Smoking Status: Former Smoker Hx Alcohol Use: No Hx Substance Use: No Hx Substance Use Treatment: No Allergies/Home Meds Allergies/Adverse Reactions: Allergies No Known Allergies Allergy (Verified 11/24/17 13:49) Home Medications: Home Meds Medication Instructions Recorded Confirmed No Known Home Med 02/20/18 02/20/18 Review of Systems - Physician Review All systems were reviewed & negative as marked: Yes - Review of Systems Constitutional: absent: Fevers, Night Sweats Respiratory: absent: SOB Cardiovascular: Chest Pain (chest discomfort), Palpitations Gastrointestinal: absent: Abdominal Pain Musculoskeletal: absent: Back Pain Physical Exam Vital Signs Reviewed: Yes Vital Signs Temp Pulse Resp BP Pulse Ox 02/20/18 06:00 69 18 102/64 100 02/20/18 03:08 68 18 121/79 98 02/19/18 19:59 97.6 F 89 18 117/90 100 Temperature: Afebrile Blood Pressure: Normal Pulse: Regular Respiratory Rate: Normal Appearance: Positive for: Well-Appearing, Non-Toxic, Comfortable Pain Distress: None Mental Status: Positive for: Alert and Oriented X 3 - Systems Exam Head: Present: Atraumatic, Normocephalic Pupils: Present: PERRL Extroacular Muscles: Present: EOMI Conjunctiva: Present: Normal Mouth: Present: Moist Mucous Membranes Neck: Present: Normal Range of Motion Respiratory/Chest: Present: Clear to Auscultation, Good Air Exchange. No: Respiratory Distress, Accessory Muscle Use Cardiovascular: Present: Regular Rate and Rhythm, Normal S1, S2. No: Murmurs Abdomen: No: Tenderness, Distention, Peritoneal Signs Back: Present: Normal Inspection Upper Extremity: Present: Normal Inspection. No: Cyanosis, Edema Lower Extremity: Present: Normal Inspection. No: Edema Neurological: Present: GCS=15, CN II-XII Intact, Speech Normal Skin: Present: Warm, Dry, Normal Color. No: Rashes Psychiatric: Present: Alert, Oriented x 3, Normal Insight, Normal Concentration Medical Decision Making ED Course and Treatment: 02/19/18 19:58 Impression: 32 year old male with chest discomfort with associated palpitations. No acute findings on physical examination. Plan: -- EKG -- Chest X-ray -- Labs -- Reassess and disposition Progress Notes: EKG: Ordered, reviewed, and independently interpreted the EKG. Rate : 85 BPM Rhythm : NSR Interpretation : No ST-segment elevations or depressions, no T-wave inversions, normal intervals. Comparison : No previous EKG for comparison. 02/19/18 23:45 Chest X-ray reviewed, shows no acute processes. 02/19/18 23:51 Case discussed with diploma medical assistant head bone grinder, who is aware and agrees with plan. 02/19/18 23:[address] Yoo, who is aware and agrees with plan. Accepts pt in to hospitalist service. Pt will go to Telemetry observation for - Lab Interpretations Lab Results: 02/19/18 20:17 02/19/18 20:17 Lab Results 02/19/18 20:17: WBC 5.6 D, RBC 5.09, Hgb 15.6, Hct 42.4, MCV 83.3, MCH 30.6, MCHC 36.8, RDW 12.0, Plt Count 215, MPV 9.6 02/19/18 20:17: Sodium 139, Potassium 3.4 L, Chloride 102, Carbon Dioxide 29, Anion Gap 12, BUN 10, Creatinine 0.8, Est GFR ( Amer) > 60, Est GFR (Non- Af Amer) > 60, Random Glucose 94, Calcium 9.4, Total Bilirubin 0.9, AST 36, ALT 39, Alkaline Phosphatase 59, Lactate Dehydrogenase 480, Total Creatine Kinase 258 H, CK-MB (CK-2) 1.2, CK-MB (CK-2) % Cancelled, Troponin I < 0.01, Total Protein 7.6, Albumin 4.3, Globulin 3.2, Albumin/Globulin Ratio 1.3 02/19/18 20:17: PT 12.0, INR 1.05, APTT 28.2 I have reviewed the lab results: Yes - RAD Interpretation Radiology Orders: 02/19/18 19:58 CHEST PORTABLE [RAD] Stat Senior Production Supervisor: ED Physician - EKG Interpretation Interpreted by ED Physician: Yes Type: 12 lead EKG - Medication Orders Current Medication Orders: Aspirin (Ecotrin) 81 mg PO DAILY JR Ibuprofen (Motrin Tab) 400 mg PO Q6H PRN PRN Reason: Pain, moderate (4-7) Pantoprazole Sodium (Protonix Ec Tab) 40 mg PO 0600 JR Last Admin: 02/20/18 06:18 Dose: 40 mg Discontinued Medications Aspirin (Aspirin) 325 mg PO ONCE STA Stop: 02/19/18 23:49 Last Admin: 02/20/18 00:00 Dose: 325 mg Nitroglycerin (Nitrostat Sl Tab) 0.3 mg SL Q5M PRN PRN Reason: chest pain Stop: 02/20/18 03:26 Potassium Chloride (K-Dur 20 Meq Er Tab) 20 meq PO STAT STA Stop: 02/19/18 23:49 Last Admin: 02/20/18 00:00 Dose: 20 meq - Scribe Statement The provider has reviewed the documentation as recorded by the Gissel Joseph Provider Scribe Provider Scribe Attestation: All medical record entries made by the Aleciaibphyllis were at my direction and personally dictated by me. I have reviewed the chart and agree that the record accurately reflects my personal performance of the history, physical exam, medical decision making, and the department course for this patient. I have also personally directed, reviewed, and agree with the discharge instructions and disposition. Disposition/Present on Arrival - Present on Arrival Any Indicators Present on Arrival: No History of DVT/PE: No History of Uncontrolled Diabetes: No Urinary Catheter: No History of Decub. Ulcer: No History Surgical Site Infection Following: None - Disposition Have Diagnosis and Disposition been Completed?: Yes Diagnosis: Chest pain Disposition: HOSPITALIZED Disposition Time: 23:59 Condition: STABLE
[2018-02-19 21:14] LABS: HEMOGLOBIN 15.6 g/dL (14.0-18.0); MEAN CELL VOLUME 83.3 fl (80.0-105.0); MEAN CORPUSCULAR HEMOGLOBIN 30.6 pg (25.0-35.0); MEAN CORPUSCULAR HGB CONC 36.8 g/dl (31.0-37.0); MEAN PLATELET VOLUME 9.6 fl (7.0-11.0); RBC 5.09 10^6/uL (3.5-6.1); WHITE BLOOD COUNT 5.6 10^3/ul (4.5-11.0)
[2018-02-19 21:19] LABS: INR 1.05; PARTIAL THROMBOPLASTIN TIME 28.2 Seconds (25.1-36.5)
[2018-02-19 21:24] LABS: ALB/GLOB RATIO 1.3 (1.1-1.8); ALBUMIN 4.3 g/dL (3.0-4.8); ALT/SGPT 39 U/L (7-56); AST/SGOT 36 U/L (17-59); BLOOD UREA NITROGEN 10 mg/dL (7-21); CALCIUM 9.4 mg/dL (8.4-10.5); GFR NON-AFRICAN AMERICAN > 60
[2018-02-19 21:35] LABS: TROPONIN I < 0.01 ng/mL
[2018-02-19 21:53] LABS: CK-MB 1.2 ng/mL (0.0-3.6)
[2018-02-19] MEDS ORDERED: Potassium Chloride 20 mEq ER Tab PO STA (23:48)
--- NOTE | 2018-02-20 01:44 | CP.PCM.HP ---
<Vic Aj - Last Filed: 02/20/18 02:00> History of Present Illness - History of Present Illness History of Present Illness: Vic Aj DO PGY-1, H&P for hospitalist CC: heart skipping beats, with chest pain This is a 32 year old male with PMH of atrial fibrillation, s/p ablation approximately 2 years ago, who presented to the ED with complaints of worsening heart palpitations, associated with chest pain. Pt describes his heart palpitations as a 3 month history of intermittent, "skipping of beats," which come randomly and go away by themselves. Pt states that the palpitations are also brought on during strenuous exercise, sitting up too fast, or when he eats something that "sits in his stomach for a while." Pt states that today's episodes were different, as he had associated chest pain. Chest pain is described as intermittent, nonradiating, starting at 7 pm on 02/19/18, located in the center of the chest and wrapping around the inferior aspect of the left pectoral muscle, with worsening of his chronic upper and lower distal extremity numbness and tingling (due to chronic neck and lower back pain, respectively). Pt denies fever, chills, weakness, dizziness, diaphoresis, shortness of breath, abdominal pain, n/v/d, leg swelling, no recent illness. Pt was seen and examined at bedside. He is currently asymptomatic. In the ED, EKG was NSR A 12-point ROS was reviewed and is otherwise unremarkable. Of note, pt was taken off of Atenolol [address] Reyes 2 months ago. Pt states that his palpitations were worse while on Atenolol, which he was taking for 2 years. Of note, pt had an exercise stress done in November 2017 which showed no ischemia, no arrythmias. Echocardiogram from November 2017 shows LVEF 62.6%, mild TR, no pulmonary hypertension. PMD: [facility]: Eric PMHx: Afib with ablation (2 years ago), history of hypercholesterolemia which has been controlled with diet modifications, chronic neck and lower back pain for which he is receiving physical therapy PSHx: denies FHx: Mother's side has diabetes, Father has HTN, uncle with questionable afib Meds: Tylenol PRN, fish oil, flax seed, vitamin D, vitamin b12 Allx: NKDA SHx: quit smoking 2 years ago (smoked 2 cigs/day for 3 years), drinks socially ( endorses having 6-7 beers on the weekends sometimes). Pt denies illicit drug use. pt was [place] the [place]. Present on Admission - Present on Admission Any Indicators Present on Admission: No Review of Systems - Review of Systems All systems: reviewed and no additional remarkable complaints except (see HPI) Past Patient History - Infectious Disease Hx of Infectious Diseases: None - Tetanus Immunizations Tetanus Immunization: Unknown - Past Medical History & Family History Past Medical History?: Yes Pertinent Family History: father with htn, father's side has history of pacemaker, and uncle with afib. Mother's side has history of DM. - Past Social History Smoking Status: Former Smoker Alcohol: Social Drugs: Denies - CARDIAC Hx Atrial Fibrillation: Yes (ablation 2 years ago) - PULMONARY Hx Respiratory Disorders: No - NEUROLOGICAL Hx Neurological Disorder: No - HEENT Hx HEENT Problems: No - RENAL Hx Chronic Kidney Disease: No - ENDOCRINE/METABOLIC Hx Endocrine Disorders: No - HEMATOLOGICAL/ONCOLOGICAL Hx Blood Disorders: No - INTEGUMENTARY Hx Dermatological Problems: No - MUSCULOSKELETAL/RHEUMATOLOGICAL Hx Musculoskeletal Disorders: No - GASTROINTESTINAL Hx Gastrointestinal Disorders: No - GENITOURINARY/GYNECOLOGICAL Hx Genitourinary Disorders: No - PSYCHIATRIC Hx Psychophysiologic Disorder: No Hx Substance Use: No - SURGICAL HISTORY Hx Surgeries: Yes (ablasion) - ANESTHESIA Hx Anesthesia: Yes Hx Anesthesia Reactions: No Hx Malignant Hyperthermia: No Meds Allergies/Adverse Reactions: Allergies Allergy/AdvReac Type Severity Reaction Status Date / Time No Known Allergies Allergy Verified 11/24/17 13:49 Physical Exam - Constitutional Appears: Well, Non-toxic, No Acute Distress - Head Exam Head Exam: ATRAUMATIC, NORMAL INSPECTION - Eye Exam Eye Exam: EOMI, PERRL - ENT Exam ENT Exam: Mucous Membranes Moist - Neck Exam Neck exam: Positive for: Normal Inspection - Respiratory Exam Respiratory Exam: Clear to Auscultation Bilateral, NORMAL BREATHING PATTERN. absent: Rales, Rhonchi, Wheezes, Respiratory Distress, Stridor - Cardiovascular Exam Cardiovascular Exam: REGULAR RHYTHM, +S1, +S2 - GI/Abdominal Exam GI & Abdominal Exam: Normal Bowel Sounds, Soft. absent: Tenderness - Extremities Exam Extremities exam: Positive for: normal capillary refill, normal inspection, pedal pulses present (3+ bilateral radial pulses, 3+ bilateral DP pulses). Negative for: calf tenderness, pedal edema, tenderness - Back Exam Back exam: NORMAL INSPECTION - Neurological Exam Neurological exam: Alert, Oriented x3 - Psychiatric Exam Psychiatric exam: Normal Affect - Skin Skin Exam: Normal Color Additional comments: not diaphoretic Results - Vital Signs Recent Vital Signs: Last Vital Signs Temp 97.6 F 02/19/18 19:59 Pulse 89 02/19/18 19:59 Resp 18 02/19/18 19:59 BP 117/90 02/19/18 19:59 Pulse Ox 100 02/19/18 19:59 - Labs Result Diagrams: 02/19/18 20:17 02/19/18 20:17 Assessment & Plan - Assessment and Plan (Free Text) Assessment: This is a 32 year old male with PMH of atrial fibrillation, s/p ablation approximately 2 years ago, who presented to the ED with complaints of worsening heart palpitations, associated with chest pain. Pt describes his heart palpitations as a 3 month history of intermittent, "skipping of beats," which come randomly and go away by themselves. Pt states that the palpitations are also brought on during strenuous exercise, sitting up too fast, or when he eats something that "sits in his stomach for a while." Pt states that today's episodes were different, as he had associated chest pain. Chest pain is described as intermittent, nonradiating, starting at 7 pm on 02/19/18, located in the center of the chest and wrapping around the inferior aspect of the left pectoral muscle, with worsening of his chronic upper and lower distal extremity numbness and tingling (due to chronic neck and lower back pain, respectively). In the ED, EKG was NSR without STTW changes, CXR showed no active disease, troponin x 1 was wnl, and he was given asa 325 mg PO. Pt is currently asymptomatic. Pt admitted to remote telemetry for observation. Plan: 1. Chest pain r/o ACS - will observe pt on remote telemetry - history of afib with ablation - pt received ASA 325 mg PO in the ED - ASA 81 mg PO daily - NTG SL PRN chest pain - Motrin prn pain - EKG shows NSR, will follow up EKG in am; NSR on monitor - Troponin x 1 is negative, will trend troponin x 2 q6h - f/u mag, phos in am - pt's CHADVASC2 score is 0, no need for anticoagulation at this time - pt's car clerk pullman is consulted, recs appreciated - EP cardiology consulted, recs appreciated - TSH/ t4 is normal in November 2017 2. Hypokalemia - potassium is 3.4, given k-dur 20 meq PO in the ED - continue to replete as needed - f/u cmp in the am 3. PPX/diet - DVT ppx with SCDs - protonix 40 mg PO QD - NPO past midnight until evaluated by cardiology Case was reviewed and discussed with attending physician, Dr. Yoo <Marvel Yoo - Last Filed: 02/20/18 04:13> Results - Vital Signs Recent Vital Signs: Last Vital Signs Temp 97.6 F 02/19/18 19:59 Pulse 68 02/20/18 03:08 Resp 18 02/20/18 03:08 BP 121/79 02/20/18 03:08 Pulse Ox 98 02/20/18 03:08 - Labs Result Diagrams: 02/19/18 20:17 02/19/18 20:17 Labs: Laboratory Results - last 24 hr 02/20/18 02:20 Troponin I < 0.01 Attending/Attestation - Attestation I have personally seen and examined this patient.: Yes I have fully participated in the care of the patient.: Yes I have reviewed all pertinent clinical information: Yes Notes (Text): Pt seen and examined independently. Paroxysmal A. fib CP r/o ACS Hypokalemia Trend trop and EKG CHADVASc of 0 ASA 81mg Cardiology consult 02/20/18 04:11
[2018-02-20 05:36] LABS: BASO # 0.01 K/mm3 (0.0-2.0); BASO % 0.2 % (0.0-3.0); EOS # 0.1 (0.0-0.7); EOS % 2.2 % (1.5-5.0); GRAN # 1.85 (1.4-6.5); GRAN % 36.4 % (50.0-68.0); HEMOGLOBIN 15.7 g/dL (14.0-18.0); LYMPH # 2.6 (1.2-3.4); LYMPH % 51.4 % (22.0-35.0); MEAN CELL VOLUME 84.1 fl (80.0-105.0); MEAN CORPUSCULAR HEMOGLOBIN 30.4 pg (25.0-35.0); MEAN CORPUSCULAR HGB CONC 36.1 g/dl (31.0-37.0); MEAN PLATELET VOLUME 9.4 fl (7.0-11.0); MONO # 0.5 (0.1-0.6); MONO % 9.8 % (1.0-6.0); RBC 5.17 10^6/uL (3.5-6.1); RED CELL DISTRIBUTION WIDTH 12.1 % (11.5-14.5); WHITE BLOOD COUNT 5.1 10^3/ul (4.5-11.0)
[2018-02-20] MEDS: Pantoprazole 40 mg EC Tab PO SCH (06:18)
[2018-02-20 07:10] LABS: ALB/GLOB RATIO 1.2 (1.1-1.8); ALT/SGPT 40 U/L (7-56); AST/SGOT 29 U/L (17-59); BLOOD UREA NITROGEN 15 mg/dL (7-21); GFR NON-AFRICAN AMERICAN > 60
--- NOTE | 2018-02-20 08:32 | RAD ---
Date of service: 02/19/2018 HISTORY: chest pain COMPARISON: 11/24/2017 FINDINGS: LUNGS: No active pulmonary disease. PLEURA: No significant pleural effusion identified, no pneumothorax apparent. CARDIOVASCULAR: Normal. OSSEOUS STRUCTURES: No significant abnormalities. VISUALIZED UPPER ABDOMEN: Normal. OTHER FINDINGS: None. IMPRESSION: No active disease.
--- NOTE | 2018-02-20 10:35 | CARD ---
APPROVED REPORT Date of service: 02/20/2018 EKG Measurement Heart [id number] [id number] <Conclusion> Normal sinus rhythm Right superior axis deviation Inferior infarct, age undetermined Abnormal ECG
[2018-02-20 10:37] VITALS: O2SAT 98
--- NOTE | 2018-02-20 11:28 | CARD ---
APPROVED REPORT Date of service: 02/19/2018 EKG Measurement Heart [id number] [id number] <Conclusion> Normal sinus rhythm Right superior axis deviation Abnormal ECG
[2018-02-20] MEDS ORDERED: Pneumococcal 23-Valent Vaccine IM ONE (18:34)
--- NOTE | 2018-02-20 23:51 | CON ---
DATE: 02/20/2018 CARDIOLOGY CONSULTATION HISTORY: The patient is a 32-year-old male, who presents with palpitations. He denies chest pain. The patient's past medical history includes history of chronic palpitations, which are intermittent. He underwent an extensive workup earlier this year where an echocardiogram shows good LV function. His stress test was unremarkable. A Holter monitor shows occasional APCs and occasional PVCs. He was taken off his beta-blockers and he has done well until recently when he developed palpitations again. SOCIAL HISTORY: The patient does not smoke. REVIEW OF SYSTEMS: Fourteen-point review of systems is reviewed in detail. No cardiac symptomatology is noted other than the palpitations. PHYSICAL EXAMINATION: VITAL SIGNS: Stable. NECK: Negative JVD. LUNGS: Without rales. HEART: Reveals S1, S2. EXTREMITIES: Without edema. LABORATORY DATA: EKG shows normal sinus rhythm with no acute changes. Troponins are negative. IMPRESSION: 1. Palpitations. 2. Occasional atrial premature contractions. 3. Unable to document supraventricular tachycardia on previous Holter monitoring. 4. Atypical chest pain. PLAN: Given these findings, we will restart the patient on atenolol 25 daily. From a cardiac perspective, the patient can be discharged. The patient can be followed up as an outpatient. Ken Reyes MD
[2018-02-20 23:53] VITALS: RESP 20; TEMP 97.5
[2018-02-21] MEDS: Pantoprazole 40 mg EC Tab PO SCH (05:14)
[2018-02-21 06:26] LABS: HEMOGLOBIN 15.5 g/dL (14.0-18.0); MEAN CELL VOLUME 84.1 fl (80.0-105.0); MEAN CORPUSCULAR HGB CONC 35.7 g/dl (31.0-37.0); MEAN PLATELET VOLUME 9.7 fl (7.0-11.0); RBC 5.16 10^6/uL (3.5-6.1); RED CELL DISTRIBUTION WIDTH 11.9 % (11.5-14.5); WHITE BLOOD COUNT 4.5 10^3/ul (4.5-11.0)
[2018-02-21 06:58] LABS: ALB/GLOB RATIO 1.4 (1.1-1.8); ALBUMIN 4.1 g/dL (3.0-4.8); ALT/SGPT 38 U/L (7-56); AST/SGOT 23 U/L (17-59); BLOOD UREA NITROGEN 13 mg/dL (7-21); CALCIUM 8.8 mg/dL (8.4-10.5); GFR NON-AFRICAN AMERICAN > 60
[2018-02-21 09:31] VITALS: BP 113/76; PULSE 68
--- NOTE | 2018-02-21 13:39 | PN ---
DATE: 02/21/2018 CARDIOLOGY FOLLOWUP SUBJECTIVE: The patient is free of palpitations. On low-dose atenolol. PHYSICAL EXAMINATION: VITAL SIGNS: Blood pressure is 113/76; the heart rate is 68, regular. NECK: Negative JVD. LUNGS: Without rales. HEART: Reveals S1, S2. EXTREMITIES: Without edema. LABORATORY DATA: BUN and creatinine are unremarkable. Troponins are negative. Hemoglobin is 15.5. IMPRESSION: 1. Resolution of palpitations on low-dose beta blockers. 2. Likely paroxysmal supraventricular tachycardia, although unable to document on telemetry. 3. Atypical chest pain. PLAN: Given these findings, the patient should go home on low-dose atenolol. I have discussed with the patient about the need for healthier lifestyle with cardiac risk reduction program. Ken Reyes MD
--- NOTE | 2018-02-21 19:38 | CP.PCM.DIS ---
Provider - Provider Date of Admission: 02/19/18 23:59 Attending physician: David Hermosillo MD Primary care physician: Chico Hudson MD Consults: Cardiology: Dr. Reyes Time Spent in preparation of Discharge (in minutes): 40 Hospital Course - Lab Results Lab Results: Most Recent Lab Values WBC 4.5 10^3/ul (4.5-11.0) 02/21/18 05:40 RBC 5.16 10^6/uL (3.5-6.1) 02/21/18 05:40 Hgb 15.5 g/dL (14.0-18.0) 02/21/18 05:40 Hct 43.4 % (42.0-52.0) 02/21/18 05:40 MCV 84.1 fl (80.0-105.0) 02/21/18 05:40 MCH 30.0 pg (25.0-35.0) 02/21/18 05:40 MCHC 35.7 g/dl (31.0-37.0) 02/21/18 05:40 RDW 11.9 % (11.5-14.5) 02/21/18 05:40 Plt Count 193 10^3/uL (120.0-450.0) 02/21/18 05:40 MPV 9.7 fl (7.0-11.0) 02/21/18 05:40 Gran % 36.4 % (50.0-68.0) L 02/20/18 05:15 Lymph % (Auto) 51.4 % (22.0-35.0) H 02/20/18 05:15 Ector % (Auto) 9.8 % (1.0-6.0) H 02/20/18 05:15 Eos % (Auto) 2.2 % (1.5-5.0) 02/20/18 05:15 Baso % (Auto) 0.2 % (0.0-3.0) 02/20/18 05:15 Gran # 1.85 (1.4-6.5) 02/20/18 05:15 Lymph # (Auto) 2.6 (1.2-3.4) 02/20/18 05:15 Ector # (Auto) 0.5 (0.1-0.6) 02/20/18 05:15 Eos # (Auto) 0.1 (0.0-0.7) 02/20/18 05:15 Baso # (Auto) 0.01 K/mm3 (0.0-2.0) 02/20/18 05:15 PT 12.0 SECONDS (9.4-12.5) 02/19/18 20:17 INR 1.05 02/19/18 20:17 APTT 28.2 Seconds (25.1-36.5) 02/19/18 20:17 Sodium 141 mmol/L (132-148) 02/21/18 05:40 Potassium 4.1 mmol/L (3.6-5.0) 02/21/18 05:40 Chloride 103 mmol/L (98-107) 02/21/18 05:40 Carbon Dioxide 29 mmol/L (21-33) 02/21/18 05:40 Anion Gap 14 (10-20) 02/21/18 05:40 BUN 13 mg/dL (7-21) 02/21/18 05:40 Creatinine 0.9 mg/dl (0.8-1.5) 02/21/18 05:40 Est GFR ( Amer) > 60 02/21/18 05:40 Est GFR (Non-Af Amer) > 60 02/21/18 05:40 Random Glucose 96 mg/dL (70-110) 02/21/18 05:40 Calcium 8.8 mg/dL (8.4-10.5) 02/21/18 05:40 Phosphorus 5.0 mg/dL (2.5-4.5) H 02/20/18 05:15 Magnesium 2.3 mg/dL (1.7-2.2) H 02/20/18 05:15 Total Bilirubin 0.4 mg/dL (0.2-1.3) 02/21/18 05:40 AST 23 U/L (17-59) 02/21/18 05:40 ALT 38 U/L (7-56) 02/21/18 05:40 Alkaline Phosphatase 57 U/L (38-126) 02/21/18 05:40 Lactate Dehydrogenase 480 U/L (333-699) 02/19/18 20:17 Total Creatine Kinase 258 U/L (35-230) H 02/19/18 20:17 CK-MB (CK-2) 1.2 ng/mL (0.0-3.6) 02/19/18 20:17 CK-MB (CK-2) % Cancelled 02/19/18 20:17 Troponin I < 0.01 ng/mL 02/20/18 08:30 Total Protein 7.0 g/dL (5.8-8.3) 02/21/18 05:40 Albumin 4.1 g/dL (3.0-4.8) 02/21/18 05:40 Globulin 2.9 gm/dL 02/21/18 05:40 Albumin/Globulin Ratio 1.4 (1.1-1.8) 02/21/18 05:40 - Hospital Course Hospital Course: Amador Madera, PGY1 Discharge Summary for Dr. Wagner Hospital Admission: Patient is a 32 year old male with PMHx of atrial fibrillation, s/p ablation ( 2015), who presented to the ED on 02/19 with complaints of worsening heart palpitations, associated with chest pain. Patient describes his heart palpitations as a 3 month history of intermittent, skipping of beats, which come randomly and go away by themselves. Patient states that the palpitations are also brought on during strenuous exercise and sitting up too fast. Patient states that todays episodes were different, as he had associated chest pain. Chest pain is described as intermittent, nonradiating, starting at 7 pm on , located in the center of the chest and wrapping around the inferior aspect of the left pectoral muscle, with worsening of his chronic upper and lower distal extremity numbness and tingling (due to chronic neck and lower back pain , respectively). He denies fever, chills, weakness, dizziness, diaphoresis, shortness of breath, abdominal pain, n/v/d, leg swelling, and recent illness. In the ED, patient's CXR indicated no active disease. EKG showed NSR. Troponins were negative x3. Patient was admitted to telemetry for monitoring. Cardiology was consulted. Patient was admitted for Palpitations with history of afib (s/p ablation in 2015). Patient was started on Atenolol 25 mg daily. Patient's vital signs were stable. After initial presentation at the ED, patient was asymptomatic and no longer complaining of chest pain or palpitations. Review of systems was grossly normal. Patient is stable for discharge. Upon Discharge: Patient is cleared by cardiology for discharge. Patient will follow up with his head operator sulfide and PMD after discharge. Patient will be started on a new medication, atenolol 25 mg once daily. Case was discussed and reviewed with Attending, Dr. Wagner. Discharge Exam - Head Exam Head Exam: ATRAUMATIC, NORMAL INSPECTION - Eye Exam Eye Exam: EOMI, Normal appearance, PERRL - ENT Exam ENT Exam: Mucous Membranes Moist, Normal Exam - Neck Exam Neck exam: Full Rom - Respiratory Exam Respiratory Exam: Clear to PA & Lateral, NORMAL BREATHING PATTERN, UNREMARKABLE. absent: Rales, Rhonchi, Wheezes - Cardiovascular Exam Cardiovascular Exam: RRR, +S1, +S2. absent: Systolic Murmur - GI/Abdominal Exam GI & Abdominal Exam: Normal Bowel Sounds, Soft, Unremarkable - Extremities Exam Extremities exam: full ROM, normal inspection, pedal pulses present - Neurological Exam Neurological exam: Alert, CN II-XII Intact, Oriented x3 - Psychiatric Exam Psychiatric exam: Normal Affect, Normal Mood - Skin Skin Exam: Dry, Intact, Normal Color, Warm Discharge Plan - Discharge Medications Prescriptions: Atenolol [Tenormin] 25 mg PO DAILY #30 tab - Follow Up Plan Condition: STABLE Disposition: HOME/ ROUTINE Instructions: Chest Pain (ED) Additional Instructions: Please follow up with Dr. Reyes the head operator sulfide within 1 week Please follow up with Dr. Hudson within 3-5 days Return to ED if symptoms return Please start atenolol 25mg once daily Referrals: Chico Hudson MD [Primary Care Provider] - Ken Reyes MD [Staff Provider] -
== END 2018-02-21 12:10 | disposition home or self-care (01) ==
LOC: ED 19:44 → ERH 23:59 → 3RNO 02-20 10:25
PROVIDERS: ADMIT Internal Medicine; ATTEND Internal Medicine
DX: R07.89 Other chest pain (principal); E78.00 Pure hypercholesterolemia, unspecified; G89.29 Other chronic pain; I47.1 Supraventricular tachycardia; E87.6 Hypokalemia; I48.91 Unspecified atrial fibrillation; I49.1 Atrial premature depolarization; I49.3 Ventricular premature depolarization; Z82.49 Family history of ischemic heart disease and other diseases of the circulatory system; Z83.3 Family history of diabetes mellitus; Z87.891 Personal history of nicotine dependence
CPT/HCPCS: 36415; 71045; 80053; 82550; 82553; 83615; 83735; 84100; 84484; 85025; 85027; 85610; 85730; 93005; 99285; G0378

== ENCOUNTER 2018-05-11 10:45 | Emergency (ER) | payer MEDICAID ==
[2018-05-11 10:45] VITALS: BMI 31.4
[2018-05-11 10:49] VITALS: TEMP 98.6
[2018-05-11] MEDS ORDERED: Sodium Chloride 0.9% 1,000 ML IV STA (11:09)
--- NOTE | 2018-05-11 11:23 | ED PDOC ---
Arrival/HPI - General Chief Complaint: Dizziness/Lightheaded Historian: Patient - History of Present Illness Narrative History of Present Illness (Text): 05/11/18 11:19 33yo male with no significant pmhx bib EMS for dizziness. Patient states he suddenly became dizzy/lightheaded while doing squats in a gym. Reports similar complaint 2months ago that resolved without seeing a Doctor. states the dizziness is currently resolved, but he feels light headed. Also report headache that has been ongoing now for few weeks. States he did not see his Doctor for the headache. Denies visual changes, neck pain, chest pain, SOB, diaphoresis, paresthesia, recent URI, drug use, nausea, vomiting, abdominal pain, any other complaint. Past Medical History - Provider Review Nursing Documentation Reviewed: Yes - Past History Past History: No Previous - Infectious Disease Hx of Infectious Diseases: None - Tetanus Immunization Tetanus Immunization: Unknown - Cardiac Hx Cardiac Disorders: Yes Hx Cardiac Arrhythmia: Yes (AFIB) - Pulmonary Hx Respiratory Disorders: Yes (USED TO SMOKE CIGARETTES. QUIT) - Neurological Hx Neurological Disorder: No - HEENT Hx HEENT Disorder: No - Renal Hx Renal Disorder: No - Endocrine/Metabolic Hx Endocrine Disorders: No - Hematological/Oncological Hx Blood Disorders: No - Integumentary Hx Dermatological Disorder: No - Musculoskeletal/Rheumatological Hx Musculoskeletal Disorders: No - Gastrointestinal Hx Gastrointestinal Disorders: No - Genitourinary/Gynecological Hx Genitourinary Disorders: No - Psychiatric Hx Psychophysiologic Disorder: No Hx Substance Use: No - Anesthesia Hx Anesthesia: Yes Hx Anesthesia Reactions: No Hx Malignant Hyperthermia: No Family/Social History - Physician Review Nursing Documentation Reviewed: Yes Family/Social History: Unknown Family HX Smoking Status: Former Smoker Hx Alcohol Use: No Hx Substance Use: No Hx Substance Use Treatment: No Allergies/Home Meds Allergies/Adverse Reactions: Allergies No Known Allergies Allergy (Verified 05/11/18 11:15) Home Medications: Home Meds Medication Instructions Recorded Confirmed RX: No Known Home Med 05/11/18 05/11/18 Review of Systems - Physician Review All systems were reviewed & negative as marked: Yes - Review of Systems Constitutional: Normal Eyes: Normal ENT: Normal Respiratory: Normal Cardiovascular: Normal Gastrointestinal: Normal Genitourinary Male: Normal Musculoskeletal: Normal Skin: Normal Neurological: Headache, Dizziness. absent: Focal Weakness, Gait Changes, Speech Changes Endocrine: Normal. absent: Polyuria Hemo/Lymphatic: Normal Psychiatric: Normal Physical Exam Vital Signs Reviewed: Yes Vital Signs Temp Pulse Resp BP Pulse Ox 05/11/18 10:47 98.6 F 68 16 108/68 99 Temperature: Afebrile Blood Pressure: Normal Pulse: Regular Respiratory Rate: Normal Appearance: Positive for: Well-Appearing, Non-Toxic, Comfortable Pain Distress: None Mental Status: Positive for: Alert and Oriented X 3 - Systems Exam Head: Present: Atraumatic, Normocephalic Pupils: Present: PERRL Extroacular Muscles: Present: EOMI Conjunctiva: Present: Normal Mouth: Present: Moist Mucous Membranes Neck: Present: Normal Range of Motion Respiratory/Chest: Present: Clear to Auscultation, Good Air Exchange. No: Respiratory Distress, Accessory Muscle Use Cardiovascular: Present: Regular Rate and Rhythm, Normal S1, S2. No: Murmurs Abdomen: No: Tenderness, Distention, Peritoneal Signs Back: Present: Normal Inspection Upper Extremity: Present: Normal Inspection. No: Cyanosis, Edema Lower Extremity: Present: Normal Inspection. No: Edema Neurological: Present: GCS=15, CN II-XII Intact, Speech Normal, Motor Func Grossly Intact, Normal Sensory Function, Normal Cerebellar Funct, Norm Deep Tendon Reflexes, Gait Normal, Memory Normal, Other (No focal neurological deficit) Skin: Present: Warm, Dry, Normal Color. No: Rashes Psychiatric: Present: Alert, Oriented x 3, Normal Insight, Normal Concentration Medical Decision Making ED Course and Treatment: 05/11/18 19:11 PT in ED for stated history. He was neurologically intact and in no distress. Labs EKG Head CT Tylenol and 1L NS On re evaluation pt reports improvement. Head cT Negative EKG _ NSR @90bpm Labs was reviewed and unremarkable Pt's symptom likely vasovagal Result was DW the pt. He was DC home and referred to Neuro for outpt evaluation. - RAD Interpretation Radiology Orders: 05/11/18 11:09 HEAD W/O CONTRAST [CT] Stat - Medication Orders Current Medication Orders: Sodium Chloride (Sodium Chloride 0.9%) 1,000 mls @ 999 mls/hr IV .Q1H1M STA Stop: 05/11/18 12:09 Discontinued Medications Acetaminophen (Tylenol 325mg Tab) 650 mg PO STAT STA Stop: 05/11/18 11:10 Disposition/Present on Arrival - Present on Arrival Any Indicators Present on Arrival: No History of DVT/PE: No History of Uncontrolled Diabetes: No Urinary Catheter: No History of Decub. Ulcer: No History Surgical Site Infection Following: None - Disposition Have Diagnosis and Disposition been Completed?: Yes Diagnosis: Dizziness, Head ache Disposition: HOME/ ROUTINE Disposition Time: 12:55 Patient Plan: Discharge Condition: STABLE Discharge Instructions (ExitCare): Vertigo (a Type of Dizziness), Headache, Adult Additional Instructions: Follow up with your Doctor/Neurologist Return to ED for any worsening symptoms Referrals: Helen Miles MD [Staff Provider] - Follow up with primary Forms: [employer] ([place])
--- NOTE | 2018-05-11 11:43 | CT ---
Date of service: 05/11/2018 PROCEDURE: CT HEAD WITHOUT CONTRAST. HISTORY: headache COMPARISON: None available. TECHNIQUE: Axial computed tomography images were obtained through the head/brain without intravenous contrast. Radiation dose: Total exam DLP = 919.06 mGy-cm. This CT exam was performed using one or more of the following dose reduction techniques: Automated exposure control, adjustment of the mA and/or kV according to patient size, and/or use of iterative reconstruction technique. FINDINGS: HEMORRHAGE: No intracranial hemorrhage. BRAIN: No mass effect or edema. No atrophy or chronic microvascular ischemic changes. VENTRICLES: Unremarkable. No hydrocephalus. CALVARIUM: Unremarkable. PARANASAL SINUSES: Unremarkable as visualized. No significant inflammatory changes. MASTOID AIR CELLS: Unremarkable as visualized. No inflammatory changes. OTHER FINDINGS: None. IMPRESSION: Normal CT of the Head.
[2018-05-11 11:59] LABS: BASO # 0.02 K/mm3 (0.0-2.0); BASO % 0.3 % (0.0-3.0); EOS % 0.5 % (1.5-5.0); GRAN # 4.51 (1.4-6.5); HEMOGLOBIN 16.1 g/dL (14.0-18.0); LYMPH # 1.4 (1.2-3.4); MEAN CELL VOLUME 84.1 fl (80.0-105.0); MEAN CORPUSCULAR HEMOGLOBIN 30.6 pg (25.0-35.0); MEAN CORPUSCULAR HGB CONC 36.3 g/dl (31.0-37.0); MONO # 0.5 (0.1-0.6); MONO % 8.2 % (1.0-6.0); RBC 5.27 10^6/uL (3.5-6.1); WHITE BLOOD COUNT 6.4 10^3/uL (4.5-11.0)
[2018-05-11 12:03] LABS: ALB/GLOB RATIO 1.3 (1.1-1.8); ALBUMIN 4.7 g/dL (3.0-4.8); ALT/SGPT 48 U/L (7-56); AST/SGOT 29 U/L (17-59); BLOOD UREA NITROGEN 16 mg/dL (7-21); CALCIUM 9.9 mg/dL (8.4-10.5); GFR NON-AFRICAN AMERICAN > 60
[2018-05-11 12:06] LABS: INR 1.09; PROTHROMBIN TIME 12.5 SECONDS (9.4-12.5)
[2018-05-11 12:14] LABS: TROPONIN I < 0.01 ng/mL
[2018-05-11 12:33] VITALS: RESP 18
[2018-05-11 12:55] LABS: URINE BILIRUBIN NEGATIVE (NEGATIVE); URINE BLOOD NEGATIVE (NEGATIVE); URINE GLUCOSE (UA) NEGATIVE (NEGATIVE); URINE LEUKOCYTE ESTERASE NEGATIVE Leu/uL (NEGATIVE); URINE PROTEIN TRACE mg/dL (<30 mg/dL); URINE UROBILINOGEN 0.2 E.U./dL (<1 E.U./dL)
[2018-05-11 12:58] LABS: URINE APPEARANCE CLEAR (CLEAR); URINE COLOR YELLOW (YELLOW)
[2018-05-11 13:12] LABS: URINE RBC NEGATIVE /hpf (0-2); URINE WBC NEGATIVE /hpf (0-6)
[2018-05-11 13:56] VITALS: BP 119/71; PULSE 78; O2SAT 99
--- NOTE | 2018-05-11 20:30 | CARD ---
APPROVED REPORT Date of service: 05/11/2018 EKG Measurement Heart [id number] 172P59 [id number] <Conclusion> Normal sinus rhythm Normal Electrocardiogram
== END 2018-05-11 13:55 | disposition home or self-care (01) ==
LOC: ED 10:45
DX: R42 Dizziness and giddiness (principal); R51 Headache; I48.91 Unspecified atrial fibrillation; Z87.891 Personal history of nicotine dependence
CPT/HCPCS: 70450; 80053; 81001; 82550; 82948; 83615; 83735; 84484; 85025; 85610; 85730; 93005; 99283; J7030